=== PATIENT | male | born 1990 | race Two or more races ===

== ENCOUNTER 2021-03-22 10:42 | Emergency (ER) | payer MEDICAID, OTHER ==
[~2021-03-22] VITALS: Ht 172.7 cm; Wt 72.6 kg
[2021-03-22] MEDS ORDERED: IBUPROFEN 600 MG TAB PO ONE (11:30)
[2021-03-22 13:44] VITALS: BP 130/89
== END 2021-03-22 13:47 | disposition home or self-care (01) ==
LOC: ER 10:42
DX: B34.9 Viral infection, unspecified (principal); Z20.822 Contact with and (suspected) exposure to COVID-19
CPT/HCPCS: 36415; 87426

== ENCOUNTER 2024-12-08 06:59 | Inpatient (IN) | payer MEDICAID ==
[~2024-12-08] VITALS: Ht 177.8 cm; Wt 93.0 kg
--- NOTE | 2024-12-08 07:24 | ED.PDOC ---
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 EMS reports, patient is coming from home where he complains of abdominal pain with associated nausea and vomiting onset, x2days ago. Patient states, he believes symptoms to have arouse following, drinking iced tea out of a suspected molded glynn. Patient denies fever, chills, sweats, or diarrhea. No other symptoms or modifying factors present at this time. Time Seen by MD: 07:00 Primary Care Provider: DENIES Reviewed Notes: Nurses Notes, Personal Care Assistant Notes, Medications, Allergies Allergies: Coded Allergies: NO KNOWN ALLERGIES (Unverified , 03/22/21) Information Source: Patient, Emergency Med Personnel Mode of Arrival: EMS Timing: Days Duration: Since onset Prehospital treatment: None Quality: None Vomitus: Watery Stool: Normal Severity: Moderate Recent: None Recent Hx of: None Pain Location: Diffuse Modifying Factors: Nothing Associated sign and symptoms: Nausea, Vomiting, Abdominal Pain Past Medical History PAST MEDICAL HISTORY: Denies Family History Family History: Reviewed,noncontributory to illness Social History Smoker: Less Than 1 Pack/Day Alcohol: Denies ETOH Use Drugs: Denies Drug Use Lives In: Home Constitutional: denies: chills, diaphoresis, fatigue, fever, malaise, sweats, weakness, others EENTM: denies: blurred vision, double vision, ear bleeding, ear discharge, ear drainage, ear pain, ear ringing, eye pain, eye redness, hearing loss, mouth pain, mouth swelling, nasal discharge, nose bleeding, nose congestion, nose pain, photophobia, tearing, throat pain, throat swelling, voice changes, others Respiratory: denies: cough, hemoptysis, orthopnea, SOB at rest, shortness of breath, SOB with excertion, stridor, wheezing, others Cardiovascular: denies: chest pain, dizzy spells, diaphoresis, Dyspnea on exertion, edema, irregular heart beat, left arm pain, lightheadedness, palpitations, PND, syncope, others Gastrointestinal: reports: abdominal pain, nausea, vomiting; denies: abdomen distended, blood streaked bowels, constipated, diarrhea, dysphagia, difficulty swallowing, hematemesis, melena, poor appetite, poor fluid intake, rectal bleeding, rectal pain, others Genitourinary: denies: burning, dysuria, flank pain, frequency, hematuria, incontinence, penile discharge, penile sore, pain, testicle pain, testicle swelling, urgency, others Neurological: denies: dizziness, fainting, headache, left sided numbness, left sided weakness, numbness, paresthesia, pre-existing deficit, right sided numbness, right sided weakness, seizure, speech problems, tingling, tremors, weakness, others Musculoskeletal: denies: back pain, gout, joint pain, joint swelling, muscle pain, muscle stiffness, neck pain, others Integumetry: denies: bruises, change in color, change in hair/nails, dryness, laceration, lesions, lumps, rash, wounds, others Allergic/Immunocompromised: denies: Difficulty Healing, Frequent Infections, Hives, Itching, others Hematologic/Lymphatic: denies: anemia, blood clots, easy bleeding, easy bruising, swollen glands, others Endocrine: denies: excessive hunger, excessive sweating, excessive thirst, excessive urination, flushing, intolerance to cold, intolerance to heat, unexplained weight gain, unexplained weight loss, others Psychiatric: denies: anxiety, bipolar disorder, depression, hopeless, panic disorder, schizophrenia, sleepless, suicidal, others All Other Systems: Reviewed and Negative Physical Exam General Appearance: Moderate Distress HEENT: Normal ENT Inspection, Pharynx Normal, TMs Normal Neck: Full Range of Motion, Non-Tender, Normal, Normal Inspection Respiratory: Chest Non-Tender, Lungs Clear, No Accessory Muscle Use, No Respiratory Distress, Normal Breath Sounds Cardiovascular: No Edema, No JVD, No Murmur, No Gallop, Normal Peripheral Pulses, Regular Rate/Rhythm Breast Exam: Deferred Gastrointestinal: No Organomegaly, Non Tender, No Pulsatile Mass, Normal Bowel Sounds, Soft Genitalia: Deferred Pelvic: Deferred Rectal: Deferred Extremities: No calf tenderness, Normal capillary refill, Normal inspection, Normal range of motion, Non-tender, No pedal edema Musculoskeletal : Apperance: Normal Neurologic: Alert, No Motor Deficits, No Sensory Deficits Cerebellar Function: NOT DONE Reflexes: NOT DONE Skin: Dry, Normal Color, Warm Lymphatic: No Adenopathy Was a procedure done? Was a procedure done?: No GI differential Dx Differential Diagnosis: Constipation, Diverticular disease, Esophagitis, Gastritis/PUD, Gastroenteritis, Electrolyte Imbalance, Food Poisoning, Bacterial, Viral X-Ray, Labs, Meds, VS Vital Signs Date Time Temp Pulse Resp B/P (MAP) Pulse Ox O2 Delivery O2 Flow Rate FiO2 12/08/24 07:49 98.0 108 15 138/82 (100) 100 98.0 12/08/24 07:28 98.1 114 18 133/98 (110) 100 98.1 Lab Test 12/08/24 07:22 Range/Units White Blood Count 19.2 H 4.4-10.8 10^3/uL Red Blood Count 5.14 4.5-5.90 10^6/uL Hemoglobin 15.5 13.5-17.5 g/dL Hematocrit 44.7 41.0-53.0 % Mean Corpuscular Volume 87.1 80.0-100.0 fL Mean Corpuscular Hemoglobin 30.1 28.0-32.0 pg Mean Corpuscular Hemoglobin Concent 34.6 32.0-36.0 g/dL Red Cell Distribution Width 17.7 H 11.8-14.3 % Platelet Count 335 140-450 10^3/uL Mean Platelet Volume 7.3 6.9-10.8 fL Neutrophils (%) (Auto) 83.4 H 37.0-80.0 % Lymphocytes (%) (Auto) 9.2 L 10.0-50.0 % Monocytes (%) (Auto) 7.2 0.0-12.0 % Eosinophils (%) (Auto) 0.0 0.0-7.0 % Basophils (%) (Auto) 0.2 0.0-2.0 % Neutrophils # (Auto) 16.0 H 1.6-8.6 10 ^3/uL Lymphocytes # (Auto) 1.8 0.4-5.4 10 ^3/uL Monocytes # (Auto) 1.4 H 0-1.3 10 ^3/uL Eosinophils # (Auto) 0 0-0.8 10 ^3/uL Basophils # (Auto) 0 0-0.2 10 ^3/uL Nucleated Red Blood Cells 0.0 % Sodium Level 142 136-145 mmol/L Potassium Level 3.0 L 3.5-5.1 mmol/L Chloride Level 98 98-107 mmol/L Carbon Dioxide Level 27 20-31 mmol/L Anion Gap 17 H 5-15 Blood Urea Nitrogen 21 9-23 mg/dL Creatinine 1.60 H 0.700-1.30 mg/dL Glomerular Filtration Rate Calc 57 >90 mL/min BUN/Creatinine Ratio 13.1 10.0-20.0 Serum Glucose 128 H 74-106 mg/dL Calcium Level 12.9 H 8.7-10.4 mg/dL Current Medications Medications (Trade) Dose Ordered Sig/Jermain Route Start Time Stop Time Status Last Admin Sodium Chloride 1,000 ml @ 1,000 mls/hr Q1H ONCE IV 12/08/24 07:15 12/08/24 08:14 12/08/24 07:45 Ondansetron HCl (Zofran) 4 mg ONCE ONCE IV 12/08/24 07:15 12/08/24 07:16 DC 12/08/24 07:45 Lorazepam (Ativan Inj) 1 mg ONCE ONCE IV 12/08/24 07:30 12/08/24 07:31 DC 12/08/24 07:45 Patient alert. Came in because of nausea vomiting. Establish intravenous access. Vitals stable. Answering questions. Denies suicidal or homicidal ideation. Was given fluids. Was given Zofran. Was given Ativan. Calcium is elevated. Potassium is low. Was given potassium. WBC elevated. Blood cultures. Lactic acid. Possible sepsis. Has not been taking his psychiatric medication. Continue cardiac monitoring. Time of 1ST Reevaluation: 07:30 Reevaluation 1ST: Unchanged Patient Education/Counseling: Diagnosis, Treatment Family Education/Counseling: No Family Present Departure 1 Departure Time of Disposition: 08:14 Impression: Primary Impression: Sepsis, unspecified organism Qualified Codes: A41.9 - Sepsis, unspecified organism Disposition: 09 ADMITTED INPATIENT Admit to: Med Surg Condition: Guarded Critical Care Note Critical Care Time?: Yes (90 min-critical care time only) Critical care comment: Sepsis Stability Stability form required: No Heart Score Heart Score: Heart Score Response (Comments) Value History N/A 0 EKG N/A 0 Age N/A 0 Risk Factors N/A 0 Troponin N/A 0 Total 0 I personally scribed for NELLA ESTRELLA MD ([email or web address]) on 12/08/24 at 07:24. Electronically submitted by Cynthia Fay [email or web address]). NELLA ESTRELLA MD December 08, 2024 07:24
[2024-12-08 07:32] LABS: Basophils # (auto) 0 10 ^3/uL (0-0.2); Basophils % (auto) 0.2 % (0.0-2.0); Eosinophils # (auto) 0 10 ^3/uL (0-0.8); Hematocrit 44.7 % (41.0-53.0); Hemoglobin 15.5 g/dL (13.5-17.5); Lymphocytes # (auto) 1.8 10 ^3/uL (0.4-5.4); Lymphocytes % (auto) 9.2 % (10.0-50.0); Mean Corpuscular Hemoglobin 30.1 pg (28.0-32.0); Mean Corpuscular Hgb Conc. 34.6 g/dL (32.0-36.0); Mean Corpuscular Volume 87.1 fL (80.0-100.0); Monocytes # (auto) 1.4 10 ^3/uL (0-1.3); Monocytes % (auto) 7.2 % (0.0-12.0); Neutrophils % (auto) 83.4 % (37.0-80.0); Platelet Count (auto) 335 10^3/uL (140-450); Red Blood Cells 5.14 10^6/uL (4.5-5.90); Red Cell Distribution Width 17.7 % (11.8-14.3); White Blood Cell 19.2 10^3/uL (4.4-10.8)
[2024-12-08 07:43] LABS: Chloride 98 mmol/L (98-107); Sodium 142 mmol/L (136-145)
[2024-12-08 07:44] LABS: Anion Gap 17 (5-15); Carbon Dioxide 27 mmol/L (20-31)
[2024-12-08] MEDS: LORazepam 2MG/ML-1ML VIAL IV ONE (07:45)
[2024-12-08] MEDS: SODIUM CHLORIDE 0.9% 1,000 ML IV ONE ×3 (07:45→09:10)
[2024-12-08] MEDS: ONDANSETRON HCL 4 MG/2 ML VIAL IV ONE (07:45)
[2024-12-08 07:49] LABS: BUN/Creatinine Ratio 13.1 (10.0-20.0); Blood Urea Nitrogen 21 mg/dL (9-23)
[2024-12-08 07:52] LABS: Calcium 12.9 mg/dL (8.7-10.4); Glucose 128 mg/dL (74-106)
[2024-12-08] MEDS: cefTRIAXone 1GM/50ML D5W 50 ML IV ONE (09:09)
[2024-12-08] MEDS: metroNIDAZOLE 500MG/100ML 100 ML IV ONE (09:10)
[2024-12-08] MEDS: PROCHLORPERAZINE EDISYLATE 5 MG/ML 2ML VIAL IV ONE (09:32)
[2024-12-08 10:17] LABS: Urine Bacteria None Seen /hpf (None Seen)
[2024-12-08 10:25] LABS: Urine Blood Negative /uL (Negative); Urine Clarity Turbid (Clear); Urine Color Yellow (Yellow); Urine Hyaline Cast FEW /lpf (0 - 2); Urine Mucus FEW (None Seen); Urine Protein, UAD TRACE (Negative); Urine Specific Gravity 1.021 (1.001-1.035); Urine Squamous Epithelial Cell FEW /hpf (<5); Urine Urobilinogen Normal (Negative); Urine WBC 1 /HPF (0-3)
--- NOTE | 2024-12-08 10:26 | DVH ---
CT CT AB PEL WO CON-NO ORAL OR IV INDICATION: colitis EXAM DATE: 12/08/2024 09:52 AM COMPARISON: None RADIATION DOSE: CTDIvol: 11.86 mGy, DLP: 698.32 mGy*cm PROCEDURE: Helical CT images were obtained of the abdomen and pelvis without IV contrast Sagittal and coronal reconstructions are provided. ORAL CONTRAST: None. ADDITIONAL IMAGES / REFORMATS: None All C T scans at this medical facility are performed using dose modulation techniques as appropriate to a p erformed exam including the following: Automated exposure control was utilized; adjustment of the MA and/or KV according to patient size; and use of iterative reconstruction technique. FINDINGS: LUNG BASE: Normal. LIVER: Normal. GALLBLADDER AND BILIARY TREE: No calcified gallstones. Normal caliber wall. No intra- or extrahepatic biliary ductal dilation. PANCREAS: Normal. SPLEEN: Normal. BOWEL: Normal. Normal appendix. ADRENALS: Normal. KIDNEYS AND URETER: Punctate nonobstructive left kidney stone. BLADDER: Normal. REPRODUCTIVE ORGANS: Normal. LYMPH NODES:No lymphadenopathy. PERITONEUM: No ascites or free air. No other fluid collection. VESSELS: Scattered atherosclerotic calcifications are noted. RETROPERITONEUM: Normal. ABDOMINAL WALL: Normal. BONES: Scattered osseous degenerative changes are noted. IMPRESSION: No acute intraabdominal abnormality. Punctate nonobstructive left kidney stone.
[2024-12-08] MEDS ORDERED: NITROGLYCERIN 0.4 MG SL TAB SL PRN (14:00)
[2024-12-08] MEDS: SODIUM CHLORIDE 0.9% 1,000 ML IV SCH (14:00)
[2024-12-08] MEDS: PIPERACILLIN-TAZOB 3.375GM 100 ML IV ONE (14:37)
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
[2024-12-08 15:45] VITALS: PULSE 114; RESP 18; O2SAT 94
--- NOTE | 2024-12-08 15:51 | DVHHP2 ---
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 EMS reports, patient is coming from home where he complains of abdominal pain with associated nausea and vomiting onset, x2days ago. Patient states, he believes symptoms to have arouse following, drinking iced tea out of a suspected molded glynn. Patient denies fever, chills, sweats, or diarrhea. No other symptoms or modifying factors present at this time. He is noted to have elevated white cell count of 19k on labs. His CT of the abdomen pelvis did not show any significant acute pathology. However given his complaints with the leukocytosis is being admitted to the hospital for further evaluation and recommendations from Gastroenterology consultation. Past Medical History None significant noted Past Surgical History: None Family History: Hypertension Smoke: <1 pack per day ALCOHOL: occassional Lives: with Family Review of Systems Review of Systems No fevers chills or sweats. No headache dizziness or lightheadedness. No recent travel. Other review of systems reviewed normal. Allergies: Coded Allergies: NO KNOWN ALLERGIES (Unverified , 03/22/21) Medications Current Medications Medications Dose Ordered Sig/Jermain Route Start Time Stop Time Status Last Admin Dose Admin Nitroglycerin 0.4 mg Q5MINP PRN SL 12/08/24 14:00 Morphine Sulfate 2 mg Q30M PRN IV 12/08/24 14:00 Sodium Chloride 1,000 ml @ 125 mls/hr Q8H IV 12/08/24 14:00 Ondansetron HCl 4 mg Q6HPRN PRN IV 12/08/24 14:00 Acetaminophen/ Hydrocodone Bitart 1 tab Q6HPRN PRN PO 12/08/24 14:00 Morphine Sulfate 2 mg Q4HPRN PRN IV 12/08/24 14:00 Famotidine 20 mg Q12HR IV 12/08/24 22:00 Piperacillin Sod/ Tazobactam Sod 100 ml @ 25 mls/hr Q6H IV 12/08/24 21:00 Exam Vital Signs Vital Signs Date Time Temp Pulse Resp B/P (MAP) Pulse Ox O2 Delivery O2 Flow Rate FiO2 12/08/24 15:45 98.0 114 18 130/93 (105) 95 98.0 12/08/24 09:21 Room Air Exam For alert awake oriented x3. HEENT neck supple no JVD pupils equal round react to light. Heart regular rate and rhythm S1 plus S2 no murmurs. Lungs fair air movement. Chest tube will expansion. No rales or wheezes. Abdomen is soft , mild tenderness in the epigastric region without rebound or guarding. No organomegaly. Positive active bowel sounds. Edema no edema. Positive distal pedal pulses. Labs/Xrays Labs Test 12/08/24 10:15 12/08/24 08:39 12/08/24 07:22 Range/Units Urine Color Yellow Yellow Urine Clarity Turbid H Clear Urine pH 8.0 5.0-9.0 Urine Specific [place] 1.021 1.001-1.035 Urine Protein Trace H Negative Urine Ketones 1+ H Negative Urine Blood Negative Negative /uL Urine Nitrite Negative Negative Urine Bilirubin Negative Negative Urine Urobilinogen Normal Negative mg/dL Urine Leukocyte Esterase Negative Negative /uL Urine RBC 4 0 - 3 /hpf Urine Microscopic WBC 1 0-3 /HPF Urine Squamous Epithelial Cells Few <5 /hpf Urine Bacteria None seen None Seen /hpf Urine Hyaline Casts Few 0 - 2 /lpf Urine Mucus Few None Seen Urine Glucose Normal Normal mg/dL Lactic Acid Level 1.8 0.4-2.0 mmol/L White Blood Count 19.2 H 4.4-10.8 10^3/uL Red Blood Count 5.14 4.5-5.90 10^6/uL Hemoglobin 15.5 13.5-17.5 g/dL Hematocrit 44.7 41.0-53.0 % Mean Corpuscular Volume 87.1 80.0-100.0 fL Mean Corpuscular Hemoglobin 30.1 28.0-32.0 pg Mean Corpuscular Hemoglobin Concent 34.6 32.0-36.0 g/dL Red Cell Distribution Width 17.7 H 11.8-14.3 % Platelet Count 335 140-450 10^3/uL Mean Platelet Volume 7.3 6.9-10.8 fL Neutrophils (%) (Auto) 83.4 H 37.0-80.0 % Lymphocytes (%) (Auto) 9.2 L 10.0-50.0 % Monocytes (%) (Auto) 7.2 0.0-12.0 % Eosinophils (%) (Auto) 0.0 0.0-7.0 % Basophils (%) (Auto) 0.2 0.0-2.0 % Neutrophils # (Auto) 16.0 H 1.6-8.6 10 ^3/uL Lymphocytes # (Auto) 1.8 0.4-5.4 10 ^3/uL Monocytes # (Auto) 1.4 H 0-1.3 10 ^3/uL Eosinophils # (Auto) 0 0-0.8 10 ^3/uL Basophils # (Auto) 0 0-0.2 10 ^3/uL Nucleated Red Blood Cells 0.0 % Sodium Level 142 136-145 mmol/L Potassium Level 3.0 L 3.5-5.1 mmol/L Chloride Level 98 98-107 mmol/L Carbon Dioxide Level 27 20-31 mmol/L Anion Gap 17 H 5-15 Blood Urea Nitrogen 21 9-23 mg/dL Creatinine 1.60 H 0.700-1.30 mg/dL Glomerular Filtration Rate Calc 57 >90 mL/min BUN/Creatinine Ratio 13.1 10.0-20.0 Serum Glucose 128 H 74-106 mg/dL Calcium Level 12.9 H 8.7-10.4 mg/dL Thyroid Stimulating Hormone (TSH) 2.57 0.55-4.78 uIU/mL Free Thyroxine (T4) Calculated 1.69 0.89-1.76 ng/dL Assessment/Plan Assessment/Plan Abdominal pain Leukocytosis We will admit and have GI consultation. Clear liquid diet. I will check lipase. We will check urine drug screen and alcohol level. IV fluids. Nausea pain medications. Supportive care and treatment. Proton pump inhibitor. Empiric antibiotics for leukocytosis. Otherwise continue rest of supportive care and treatment and further clinical management per clinical course and recommendations from the network systems consultant. Plan discussed with: Other My Orders Orders - TRUE WHITE MD Procedure Category Date Status Time Drug Screen LAB 12/08/24 Logged 13:59 Admit ADMIT 12/08/24 Transmitted 13:59 Clear Liq Diet DIET 12/08/24 Transmitted Dinner * Gi D[facility] Organic Extractions Technician CONS 12/08/24 Transmitted 13:59 Comprehensive LAB 12/09/24 Verified Metabolic Panel 04:00 Complete Blood Count LAB 12/09/24 Verified 04:00 Lipase LAB 12/09/24 Verified 04:00 Nitroglycerin PHA 12/08/24 In Process Sublingual (Ntrostat 14:00 Morphine Sulfate PHA 12/08/24 In Process Injection 14:00 Stat Ekg For Chest JOSE 12/08/24 In Process Pain 13:59 Notify Of Changes JOSE 12/08/24 In Process From Base 13:59 Wire Preparation Worker For JOSE 12/08/24 In Process 24 Hours 13:59 Emergency Dysrhythmia JOSE 12/08/24 In Process Protocol 13:59 Rhythm Strips Once JOSE 12/08/24 In Process Every Shift 13:59 Oxygen By Nasal RT 12/08/24 Transmitted Cannula 13:59 Sodium Chloride 0.9% PHA 12/08/24 In Process 14:00 Ondansetron Hcl PHA 12/08/24 In Process (Zofran) 14:00 Hydrocodone-Acet PHA 12/08/24 In Process 5/325mg Tab ([place] 14:00 Morphine Sulfate PHA 12/08/24 In Process Injection 14:00 Famotidine Injection PHA 12/08/24 In Process (Pepcid Injection) 22:00 Piperacillin-Tazob PHA 12/08/24 In Process 3.375gm (Zosyn 3.375g 21:00 Problem List: (1) Viral syndrome TRUE WHITE MD December 08, 2024 15:51
[2024-12-08] MEDS: ONDANSETRON HCL 4 MG/2 ML VIAL IV PRN (15:52)
[2024-12-08] MEDS: MORPHINE SULFATE INJ 2 MG/ml SYRG IV PRN ×2 (15:53→20:51)
[2024-12-08] MEDS: POTASSIUM EFFERVESENT TAB 25 MEQ PO ONE (16:54)
[2024-12-08] MEDS: POTASSIUM CHLORIDE 20 MEQ, LIDOCAINE 1% (LOCAL ANESTH.) 2 ML in SODIUM CHL 0.9% 100 ML IV ONE (17:50)
[2024-12-08] MEDS: HYDROcodone-ACET 5/325MG TAB PO PRN (18:34)
--- NOTE | 2024-12-08 19:40 | DVH ---
INDICATION: abel TECHNIQUE: Multiple real-time sonographic images of the kidneys and bladder were obtained. COMPARISON: None FINDINGS: The right kidney measures 9 cm in length, which is normal in size. There is normal echogenicity of t he right kidney. No hydronephrosis. The left kidney measures 10.7 cm in length, which is normal in size. There is normal echogenicity of the left kidney. No hydronephrosis. Urinary bladder is unremarkable. Urinary bladder volume of 97 cc. IMPRESSION: Normal sonographic appearance of the kidneys and urinary bladder.
[2024-12-08 20:22] VITALS: PULSE 100; RESP 18; O2SAT 96
[2024-12-08 20:36] LABS: Cannabinoid Screen, Urine Neg (NEGATIVE); Opiate Scree,Urine Neg (NEGATIVE)
[2024-12-08] MEDS: FAMOTIDINE (10MG/ML) 2ML VL IV SCH (20:51)
[2024-12-08] MEDS: PIPERACILLIN-TAZOB 3.375GM 100 ML IV SCH (20:51)
[2024-12-08 21:23] LABS: Amphetamine Screen, Urine Neg (NEGATIVE); Barbiturate Scree,Urine Neg (NEGATIVE); Benzodiazephine Screen, Urine Neg (NEGATIVE); Cocaine Screen, Urine Neg (NEGATIVE); Phencyclidine Screen, Urine Neg (NEGATIVE)
[2024-12-09] MEDS: KETOROLAC TROMETH 30 MG/ML 1ML VIAL IV ONE (02:03)
[2024-12-09 06:37] LABS: Alanine Aminotransferase 18 U/L (7-40); Albumin 4.7 g/dL (3.2-4.8); Anion Gap 11 (5-15); Aspartate Aminotransferase 17 U/L (13-40); Basophils # (auto) 0.1 10 ^3/uL (0-0.2); Basophils % (auto) 0.4 % (0.0-2.0); Blood Urea Nitrogen 19 mg/dL (9-23); Calcium 9.1 mg/dL (8.7-10.4); Carbon Dioxide 29 mmol/L (20-31); Chloride 103 mmol/L (98-107); Eosinophils # (auto) 0 10 ^3/uL (0-0.8); Eosinophils % (auto) 0.1 % (0.0-7.0); Glucose 92 mg/dL (74-106); Hematocrit 37.5 % (41.0-53.0); Hemoglobin 12.6 g/dL (13.5-17.5); Lipase 37 U/L (12-53); Lymphocytes # (auto) 1.8 10 ^3/uL (0.4-5.4); Lymphocytes % (auto) 12.6 % (10.0-50.0); Mean Corpuscular Hemoglobin 29.9 pg (28.0-32.0); Mean Corpuscular Hgb Conc. 33.7 g/dL (32.0-36.0); Mean Corpuscular Volume 88.9 fL (80.0-100.0); Monocytes # (auto) 1.1 10 ^3/uL (0-1.3); Monocytes % (auto) 8.1 % (0.0-12.0); Neutrophils # (auto) 11.1 10 ^3/uL (1.6-8.6); Neutrophils % (auto) 78.8 % (37.0-80.0); Nucleated Red Blood Cells % 0.1 %; Platelet Count (auto) 290 10^3/uL (140-450); Red Blood Cells 4.22 10^6/uL (4.5-5.90); Red Cell Distribution Width 17.2 % (11.8-14.3); Sodium 143 mmol/L (136-145); Total Protein 6.8 g/dL (5.7-8.2); White Blood Cell 14.1 10^3/uL (4.4-10.8)
[2024-12-09 06:48] LABS: Alkaline Phosphatase 38 U/L (46-116); Bilirubin, Total 1.8 mg/dL (0.2-1.0); Potassium 3.4 mmol/L (3.5-5.1)
[2024-12-09 07:19] VITALS: PULSE 101; RESP 19; O2SAT 97
[2024-12-09] MEDS: POTASSIUM CHL 20 Meq TABLET PO ONE (07:38)
[2024-12-09 08:57] VITALS: BP 129/89; PULSE 90; RESP 18; TEMP 98.9; O2SAT 96
--- NOTE | 2024-12-09 10:31 | DVH ---
INDICATION: elevated bilirubin TECHNIQUE: Multiple real-time sonographic images were obtained of the right upper quadrant. COMPARISON: None FINDINGS: The liver demonstrates homogenous echotexture without focal mass lesions. The liver measure s 16 cm. There is no intrahepatic or extrahepatic ductal dilatation. The common duct measures 4 mm. The gallbladder is without evidence of stone or sludge. The gallbladder wall measures 3 mm and is wi thin normal limits. The right kidney measures 9.7 cm. The right kidney is normal in contour, size, and shape. The echoge nicity is normal. There is no hydronephrosis. The pancreas is not well visualized due to overlying bowel gas. IMPRESSION: No sonographic evidence of gallstones or acute cholecystitis.
[2024-12-09] MEDS ORDERED: MORPHINE SULFATE 4 MG/ML SYR/VIAL IV PRN (11:30)
[2024-12-09] MEDS: MORPHINE SULFATE 4 MG/ML SYR/VIAL IV PRN (12:00)
[2024-12-09] MEDS ORDERED: BUSP10TA31 PO (13:20)
[2024-12-09] MEDS ORDERED: TIZA-142 PO (13:20)
[2024-12-09] MEDS ORDERED: MIRT1TAB39 PO (13:20)
[2024-12-09] MEDS ORDERED: QUET400T13 PO (13:20)
[2024-12-09] MEDS ORDERED: HYDR1TAB97 PO (13:20)
--- NOTE | 2024-12-09 14:11 | DVHPN2 ---
Progress Note - Dictate Date Seen: December 09, 2024 Medical Necessity Reason Pt with a Central, PICC or Fol: No Subjective Still complains of epigastric/abdominal pain. And requesting IV Dilaudid. So far all his imaging studies/workup is unremarkable. Evaluated by GI and scheduled for EGD today. vital signs Vital Sign Date Time Temp Pulse Resp B/P (MAP) Pulse Ox O2 Delivery O2 Flow Rate FiO2 12/09/24 12:00 89 15 134/80 12/09/24 08:57 98.9 96 98.9 12/09/24 07:19 Room Air* 0 21 Total Intake and Output 12/08/24 12/08/24 12/09/24 15:00 23:00 07:00 Intake Total 2150 ml 350 ml 1056.98 ml Balance 2150 ml 350 ml 1056.98 ml medications Current Medications Medications Dose Ordered Sig/Jermain Route Start Time Stop Time Status Last Admin Dose Admin Nitroglycerin 0.4 mg Q5MINP PRN SL 12/08/24 14:00 Ondansetron HCl 4 mg Q6HPRN PRN IV 12/08/24 14:00 12/09/24 10:25 4 MG Acetaminophen/ Hydrocodone Bitart 1 tab Q6HPRN PRN PO 12/08/24 14:00 12/09/24 07:38 1 TAB Piperacillin Sod/ Tazobactam Sod 100 ml @ 25 mls/hr Q6H IV 12/08/24 21:00 12/09/24 07:42 25 MLS/HR Prochlorperazine Edisylate 5 mg Q4HPRN PRN IV 12/08/24 20:00 Morphine Sulfate 2 mg Q4HPRN PRN IV 12/09/24 11:30 12/09/24 12:00 2 MG Morphine Sulfate 2 mg Q30M PRN IV 12/09/24 11:30 Sodium Chloride 1,000 ml @ 75 mls/hr [id number] IV 12/09/24 13:45 UNV Pantoprazole Sodium 40 mg BID IV 12/09/24 22:00 UNV Nystatin 5 ml QID MT 12/09/24 18:00 UNV objective Comfortable. laboratory and microbiology Laboratory Tests 12/09/24 05:25 Test 12/09/24 05:25 Range/Units Serum Glucose 92 74-106 mg/dL Assessment/Plan Acute abdominal pain ruled out gastritis/GERD Continue present management including IV pain meds as he is on. Proceed with the EGD. I will add proton pump inhibitor and nystatin orally and DC IV Pepcid. Otherwise further clinical management per clinical course and recommendations from the GI. Discussed with the nurse regarding care plan. Plan discussed with: Other TRUE WHITE MD December 09, 2024 14:10
[2024-12-09] MEDS ORDERED: LIDOCAINE 2% (LOCAL ANESTH.) PF 5ml SDV ONE (14:32)
[2024-12-09] MEDS ORDERED: PROPOFOL 10 MG/ML 20 ML IV ONE ×2 (14:32→16:07)
[2024-12-09] MEDS ORDERED: ONDANSETRON HCL 4 MG/2 ML VIAL ONE (15:56)
[2024-12-09 16:12] VITALS: PULSE 82; RESP 21; O2SAT 100
--- NOTE | 2024-12-09 16:16 | DVHOP2 ---
Operative Report DATE OF OPERATION: 12/09/24 PROCEDURE: Upper Endoscopy with biopsy. PREOPERATIVE INDICATION: The patient is a 34 -year-old male undergoing endoscopy for nausea vomiting atypical chest pain POSTOPERATIVE DIAGNOSES: 1. 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 Mild gastropathy of the proximal stomach possibly related to nausea vomiting otherwise normal examination up to the 2nd and 3rd part of the duodenum PROCEDURE PERFORMED BY: Jada Paul GI NURSE: Elizabeth SCOPE: Olympus videoendoscope. ASA CLASS: 2. PREOPERATIVE MEDICATIONS: Mac sedation Merrick Louie PROCEDURE IN DETAIL: After obtaining an informed consent, the patient was placed on left lateral decubitus position. The patient was then sedated with the above medications. A bite block was placed between his teeth. The endoscope was then passed through the oropharynx, into the esophagus, and through the stomach and pylorus up to the second and third part of the duodenum. The endoscope was then withdrawn. 2nd and 3rd part of the duodenum of the duodenal bulb were normal. There was good bile drainage The pre-pyloric area antrum and body showed minimal gastritis. On retroflexion there was moderate gastropathy in the cardia and fundus Duodenal biopsies, gastric antral biopsies and proximal stomach biopsies were obtained. The endoscope was then withdrawn into distal esophagus Patient had a 4 cm sliding-type hiatal hernia with the acute erosive esophagitis esophageal ulcers at the GE junction and extending into the distal 10 cm of the esophagus with a hyperemic erythema Esophageal biopsies were obtained. The remaining proximal esophagus and oropharynx were unremarkable. The patient tolerated the procedure well without difficulty. COMPLICATIONS : None SPECIMENS: Duodenal biopsies Gastric antral biopsies Proximal stomach biopsies Esophageal biopsies DISPOSITION: Transfer back to the floor Stable PLAN: 1. Await for biopsy result 2. Will place pt on Protonix 40 mg bid IV 3. Carafate suspension 1 g p.o. 4 times a day 4 Full liquid diet advance as tolerated 5. Outpatient follow-up with me in 4-6 weeks to review results and discuss further management JADA PAUL MD December 09, 2024 16:16
[2024-12-09 16:55] VITALS: BP 124/85; PULSE 78; RESP 19; TEMP 98.8; O2SAT 96
[2024-12-09] MEDS: SODIUM CHLORIDE 0.9% 1,000 ML IV SCH (17:00)
[2024-12-09] MEDS: NYSTATIN (MOUTH-THROAT) 500,000 UNITS/5 ML SUSP MT SCH (18:06)
[2024-12-09] MEDS: SUCRALFATE 1 GM/10 ML ORAL SUSP PO SCH (18:06)
[2024-12-09] MEDS: PROCHLORPERAZINE EDISYLATE 5 MG/ML 2ML VIAL IV PRN (18:07)
[2024-12-09 20:00] VITALS: PULSE 82; RESP 16; O2SAT 95
[2024-12-09 21:00] VITALS: BP 125/90; PULSE 78; RESP 16; TEMP 98.7; O2SAT 95
[2024-12-09] MEDS: PANTOPRAZOLE 40 MG/10 ML VIAL INJ IV SCH (21:59)
[2024-12-10] VITALS (10 sets, daily range): BP systolic 100–144; BP diastolic 58–98; PULSE 60–74; RESP 16–18; TEMP 98.1–98.8; O2SAT 91–98
[2024-12-10 10:53] LABS: Hepatitis B Core Total AB Negative (Negative)
[2024-12-10 12:04] LABS: Hepatitis A Total Antibody Positive (Negative)
[2024-12-10 12:05] LABS: Hepatitis A Ab IgM Negative; Hepatitis B Core IgM Negative (Negative)
[2024-12-10 12:06] LABS: Hepatitis B Surface Antibody Positive (Negative); Hepatitis B Surface Antigen Negative (Negative); Hepatitis C Antibody Negative (Negative)
--- NOTE | 2024-12-10 12:49 | DVHPN2 ---
Progress Note - Dictate Date Seen: December 10, 2024 Medical Necessity Reason Pt with a Central, PICC or Fol: No Subjective No new complaints No nausea vomiting Patient was tolerating full liquid diet vital signs Vital Sign Date Time Temp Pulse Resp B/P (MAP) Pulse Ox O2 Delivery O2 Flow Rate FiO2 12/10/24 12:13 69 16 131/94 12/10/24 12:08 98.2 95 98.2 12/10/24 08:14 Room Air* 0 21 Total Intake and Output 12/09/24 12/09/24 12/10/24 15:00 23:00 07:00 Intake Total 100 ml 900 ml Balance 100 ml 900 ml medications Current Medications Medications Dose Ordered Sig/Jermain Route Start Time Stop Time Status Last Admin Dose Admin Nitroglycerin 0.4 mg Q5MINP PRN SL 12/08/24 14:00 Ondansetron HCl 4 mg Q6HPRN PRN IV 12/08/24 14:00 12/09/24 10:25 4 MG Acetaminophen/ Hydrocodone Bitart 1 tab Q6HPRN PRN PO 12/08/24 14:00 12/10/24 09:35 1 TAB Piperacillin Sod/ Tazobactam Sod 100 ml @ 25 mls/hr Q6H IV 12/08/24 21:00 12/10/24 09:34 25 MLS/HR Prochlorperazine Edisylate 5 mg Q4HPRN PRN IV 12/08/24 20:00 12/09/24 18:07 5 MG Morphine Sulfate 2 mg Q4HPRN PRN IV 12/09/24 11:30 12/10/24 12:13 2 MG Morphine Sulfate 2 mg Q30M PRN IV 12/09/24 11:30 Sodium Chloride 1,000 ml @ 75 mls/hr [id number] IV 12/09/24 13:45 12/09/24 17:00 75 MLS/HR Pantoprazole Sodium 40 mg BID IV 12/09/24 22:00 12/10/24 09:34 40 MG Nystatin 5 ml QID MT 12/09/24 18:00 12/10/24 12:10 5 ML Sucralfate 1 gm QID@0600,1130,1700,2200 PO 12/09/24 17:00 12/10/24 12:10 1 GM objective General: NAD, AAOX3 Chest: lung ordoñez clear to auscultation Heart: RRR, no murmur Abdomen: non-distended, mild epigastric tenderness to palpation, +BS laboratory and microbiology Laboratory Tests 12/09/24 05:25 Test 12/09/24 05:25 Range/Units Serum Glucose 92 74-106 mg/dL Problems(with codes): (1) Hiatal hernia with gastroesophageal reflux disease and esophagitis (2) Nausea & vomiting (3) Viral syndrome (4) Sepsis, unspecified organism Prognosis Plan Advance diet as tolerated Protonix 40 mg q.12 hours Carafate 1 g p.o. 4 times a day DC aspirin NSAIDs smoking alcohol marijuana use and amphetamine use Outpatient follow up with GI Services for ongoing GI management for GERD Plan discussed with: Patient JADA MICHAEL MD December 10, 2024 12:49
--- NOTE | 2024-12-10 15:18 | DVHPN2 ---
Progress Note - Dictate Date Seen: December 10, 2024 Medical Necessity Reason Pt with a Central, PICC or Fol: No Subjective Tolerating full liquid diet. He EGD report is reviewed and discussed with the patient regarding severe esophagitis. Patient is still having some odynophagia. vital signs Vital Sign Date Time Temp Pulse Resp B/P (MAP) Pulse Ox O2 Delivery O2 Flow Rate FiO2 12/10/24 12:13 69 16 131/94 12/10/24 12:08 98.2 95 98.2 12/10/24 08:14 Room Air* 0 21 Total Intake and Output 12/09/24 12/09/24 12/10/24 15:00 23:00 07:00 Intake Total 100 ml 900 ml Balance 100 ml 900 ml medications Current Medications Medications Dose Ordered Sig/Jermain Route Start Time Stop Time Status Last Admin Dose Admin Nitroglycerin 0.4 mg Q5MINP PRN SL 12/08/24 14:00 Ondansetron HCl 4 mg Q6HPRN PRN IV 12/08/24 14:00 12/09/24 10:25 4 MG Acetaminophen/ Hydrocodone Bitart 1 tab Q6HPRN PRN PO 12/08/24 14:00 12/10/24 09:35 1 TAB Prochlorperazine Edisylate 5 mg Q4HPRN PRN IV 12/08/24 20:00 12/09/24 18:07 5 MG Morphine Sulfate 2 mg Q4HPRN PRN IV 12/09/24 11:30 12/10/24 12:13 2 MG Morphine Sulfate 2 mg Q30M PRN IV 12/09/24 11:30 Sodium Chloride 1,000 ml @ 75 mls/hr [id number] IV 12/09/24 13:45 12/09/24 17:00 75 MLS/HR Pantoprazole Sodium 40 mg BID IV 12/09/24 22:00 12/10/24 09:34 40 MG Nystatin 5 ml QID MT 12/09/24 18:00 12/10/24 12:10 5 ML Sucralfate 1 gm QID@0600,1130,1700,2200 PO 12/09/24 17:00 12/10/24 12:10 1 GM Lidocaine HCl 5 ml TID PO 12/10/24 22:00 UNV objective Alert awake oriented x3. HEENT neck supple no JVD. Heart regular rate and rhythm S1-S2. Lungs fair air movement without rales wheezes. Abdomen soft nontender positive bowel sounds. Extremities no edema positive pulses. laboratory and microbiology Laboratory Tests 12/09/24 05:25 Test 12/09/24 05:25 Range/Units Serum Glucose 92 74-106 mg/dL Assessment/Plan Acute abdominal pain status post EGD showing a severe reflux esophagitis Continue proton pump inhibitor and Carafate. Given his odynophagia I will add 24 hours of viscous lidocaine to help with the pain. Advance diet as he tolerates. If he remains stable consider discharge home tomorrow. Discussed with the patient at length regarding his care plan and EGD findings Plan discussed with: Patient, Other TRUE WHITE MD December 10, 2024 15:18
[2024-12-10] MEDS: LIDOCAINE VISCOUS 2% 15ML UD PO SCH (21:49)
[2024-12-11 01:00] VITALS: BP 126/82; PULSE 81; RESP 18; TEMP 98.3; O2SAT 94
[2024-12-11 05:00] VITALS: BP 119/84; PULSE 77; RESP 18; TEMP 98.1; O2SAT 99
[2024-12-11 08:00] VITALS: PULSE 66; PULSE 70; RESP 18; O2SAT 95
[2024-12-11] MEDS ORDERED: NYS5LQ MT (08:09)
[2024-12-11] MEDS ORDERED: PANT40T PO (08:09)
[2024-12-11] MEDS ORDERED: SUCR1SUS5 PO (08:09)
[2024-12-11 08:37] VITALS: BP 127/87; PULSE 66; RESP 20; TEMP 98.1; O2SAT 95
[2024-12-11 09:09] VITALS: BP 127/87; PULSE 66; RESP 21; TEMP 98.1; O2SAT 95
[2024-12-11] MEDS: busPIRone HCL 10 MG TAB PO SCH (10:23)
[2024-12-11 11:30] VITALS: BP 125/87; PULSE 76; RESP 18
--- NOTE | 2024-12-11 12:37 | DVHDS2 ---
Discharge Summary Date of Admission December 08, 2024 at 13:59 Date of Discharge: December 11, 2024 Labs/Diagnostic Data: Laboratory Results Test 12/10/24 06:15 12/09/24 09:26 12/09/24 05:25 12/08/24 16:45 Stool for White Cells None seen Hepatitis A IgM Antibody Negative Hepatitis A Antibody Total Positive (Negative) Hepatitis B Surface Antigen Negative (Negative) Hepatitis B Surface Antibody Positive (Negative) Hepatitis B Core Total Antibody Negative (Negative) Hepatitis B Core IgM Antibody Negative (Negative) Hepatitis C Antibody Negative (Negative) White Blood Count 14.1 10^3/uL (4.4-10.8) Red Blood Count 4.22 10^6/uL (4.5-5.90) Hemoglobin 12.6 g/dL (13.5-17.5) Hematocrit 37.5 % (41.0-53.0) Mean Corpuscular Volume 88.9 fL (80.0-100.0) Mean Corpuscular Hemoglobin 29.9 pg (28.0-32.0) Mean Corpuscular Hemoglobin Concent 33.7 g/dL (32.0-36.0) Red Cell Distribution Width 17.2 % (11.8-14.3) Platelet Count 290 10^3/uL (140-450) Mean Platelet Volume 7.5 fL (6.9-10.8) Neutrophils (%) (Auto) 78.8 % (37.0-80.0) Lymphocytes (%) (Auto) 12.6 % (10.0-50.0) Monocytes (%) (Auto) 8.1 % (0.0-12.0) Eosinophils (%) (Auto) 0.1 % (0.0-7.0) Basophils (%) (Auto) 0.4 % (0.0-2.0) Neutrophils # (Auto) 11.1 10 ^3/uL (1.6-8.6) Lymphocytes # (Auto) 1.8 10 ^3/uL (0.4-5.4) Monocytes # (Auto) 1.1 10 ^3/uL (0-1.3) Eosinophils # (Auto) 0 10 ^3/uL (0-0.8) Basophils # (Auto) 0.1 10 ^3/uL (0-0.2) Nucleated Red Blood Cells 0.1 % Sodium Level 143 mmol/L (136-145) Potassium Level 3.4 mmol/L (3.5-5.1) Chloride Level 103 mmol/L (98-107) Carbon Dioxide Level 29 mmol/L (20-31) Anion Gap 11 (5-15) Blood Urea Nitrogen 19 mg/dL (9-23) Creatinine 1.36 mg/dL (0.700-1.30) Glomerular Filtration Rate Calc 70 mL/min (>90) BUN/Creatinine Ratio 14.0 (10.0-20.0) Serum Glucose 92 mg/dL (74-106) Calcium Level 9.1 mg/dL (8.7-10.4) Magnesium Level 2.0 mg/dL (1.6-2.6) Total Bilirubin 1.8 mg/dL (0.2-1.0) Aspartate Amino Transferase (AST) 17 U/L (13-40) Alanine Aminotransferase (ALT) 18 U/L (7-40) Alkaline Phosphatase 38 U/L (46-116) Total Protein 6.8 g/dL (5.7-8.2) Albumin 4.7 g/dL (3.2-4.8) Lipase 37 U/L (12-53) Plasma/Serum Blood Alcohol < 3.0 mg/dL (<10) Test 12/08/24 10:15 12/08/24 08:39 12/08/24 07:22 Urine Color Yellow (Yellow) Urine Clarity Turbid (Clear) Urine pH 8.0 (5.0-9.0) Urine Specific Moffett 1.021 (1.001-1.035) Urine Protein Trace (Negative) Urine Ketones 1+ (Negative) Urine Blood Negative /uL (Negative) Urine Nitrite Negative (Negative) Urine Bilirubin Negative (Negative) Urine Urobilinogen Normal mg/dL (Negative) Urine Leukocyte Esterase Negative /uL (Negative) Urine RBC 4 /hpf (0 - 3) Urine Microscopic WBC 1 /HPF (0-3) Urine Squamous Epithelial Cells Few /hpf (<5) Urine Bacteria None seen /hpf (None Seen) Urine Hyaline Casts Few /lpf (0 - 2) Urine Mucus Few (None Seen) Urine Glucose Normal mg/dL (Normal) Urine Opiates Screen Neg (NEGATIVE) Urine Fentanyl Screen Neg (NEGATIVE) Urine Barbiturates Screen Neg (NEGATIVE) Urine Phencyclidine Screen Neg (NEGATIVE) Urine Amphetamines Screen Neg (NEGATIVE) Urine Benzodiazepines Screen Neg (NEGATIVE) Urine Cocaine Screen Neg (NEGATIVE) Urine Cannabinoids Screen Neg (NEGATIVE) Lactic Acid Level 1.8 mmol/L (0.4-2.0) Thyroid Stimulating Hormone (TSH) 2.57 uIU/mL (0.55-4.78) Free Thyroxine (T4) Calculated 1.69 ng/dL (0.89-1.76) Other Laboratory Tests 12/09/24 05:25 Brief Hx & Hospital Course: 34 y/o M, EPI, presents to the ED for CC of abdominal pain. EMS reports, patient is coming from home where he complains of abdominal pain with associated nausea and vomiting onset, x2days ago. Patient states, he believes symptoms to have arouse following, drinking iced tea out of a suspected molded glynn. Patient denies fever, chills, sweats, or diarrhea. No other symptoms or modifying factors present at this time. He is noted to have elevated white cell count of 19k on labs. His CT of the abdomen pelvis did not show any significant acute pathology. However given his complaints with the leukocytosis is being admitted to the hospital for further evaluation and recommendations from Gastroenterology consultation. He is admitted and evaluated by enterprise applications manager and underwent EGD. Patient noted to have significant reflux esophagitis felt causing his abdominal pain symptoms. Patient received supportive care and treatment with IV pain medications and nausea medicines. Patient is started on proton pump inhibitor and Carafate for GI recommendations. Patient also received few dose of lidocaine for his odynophagia. Otherwise overall patient is clinically feeling better. He is tolerating full liquid diet and soft diet. Therefore it is felt he could safely discharged home with continued outpatient treatment with these medications and close follow up with the enterprise applications manager for EGD biopsy results. I have talked with the patient regarding his hospital diagnosis, EGD findings, treatment he received, discharge medications, discharge instructions and follow-up plan of care. He has verbalized understanding of these and agree with the care plan as outlined. Consults/Reason for consult ORDER NUMBER(s): [id number], ACCESSION NUMBER(s): [id number] INDICATION: elevated bilirubin TECHNIQUE: Multiple real-time sonographic images were obtained of the right upper quadrant. COMPARISON: None FINDINGS: The liver demonstrates homogenous echotexture without focal mass lesions. The liver measures 16 cm. There is no intrahepatic or extrahepatic ductal dilatation. The common duct measures 4 mm. The gallbladder is without evidence of stone or sludge. The gallbladder wall measures 3 mm and is within normal limits. The right kidney measures 9.7 cm. The right kidney is normal in contour, size, and shape. The echogenicity is normal. There is no hydronephrosis. The pancreas is not well visualized due to overlying bowel gas. IMPRESSION: No sonographic evidence of gallstones or acute cholecystitis. Operations or Procedures Operative Report DATE OF OPERATION: 12/09/24 PROCEDURE: Upper Endoscopy with biopsy. PREOPERATIVE INDICATION: The patient is a 34 -year-old male undergoing endoscopy for nausea vomiting atypical chest pain POSTOPERATIVE DIAGNOSES: 1. 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 Mild gastropathy of the proximal stomach possibly related to nausea vomiting otherwise normal examination up to the 2nd and 3rd part of the duodenum PROCEDURE PERFORMED BY: Jada Michael GI NURSE: Elizabeth SCOPE: Olympus videoendoscope. ASA CLASS: 2. PREOPERATIVE MEDICATIONS: Mac sedation Merrick Louie PROCEDURE IN DETAIL: After obtaining an informed consent, the patient was placed on left lateral decubitus position. The patient was then sedated with the above medications. A bite block was placed between his teeth. The endoscope was then passed through the oropharynx, into the esophagus, and through the stomach and pylorus up to the second and third part of the duodenum. The endoscope was then withdrawn. 2nd and 3rd part of the duodenum of the duodenal bulb were normal. There was good bile drainage The pre-pyloric area antrum and body showed minimal gastritis. On retroflexion there was moderate gastropathy in the cardia and fundus Duodenal biopsies, gastric antral biopsies and proximal stomach biopsies were obtained. The endoscope was then withdrawn into distal esophagus Patient had a 4 cm sliding-type hiatal hernia with the acute erosive esophagitis esophageal ulcers at the GE junction and extending into the distal 10 cm of the esophagus with a hyperemic erythema Esophageal biopsies were obtained. The remaining proximal esophagus and oropharynx were unremarkable. The patient tolerated the procedure well without difficulty. COMPLICATIONS : None SPECIMENS: Duodenal biopsies Gastric antral biopsies Proximal stomach biopsies Esophageal biopsies DISPOSITION: Transfer back to the floor Stable PLAN: 1. Await for biopsy result 2. Will place pt on Protonix 40 mg bid IV 3. Carafate suspension 1 g p.o. 4 times a day 4 Full liquid diet advance as tolerated 5. Outpatient follow-up with me in 4-6 weeks to review results and discuss further management JADA MICHAEL MD December 09, 2024 16:16 Condition at Discharge: Stable Final Diagnosis/Problems List reflux esophagitis, gerd s/p egd, abdominal pain due to esophagitis Discharge Disposition: Home Discharge Instruct/Medications Diet: Regular, See Comment Diet comment: soft diet/full liquids diet for next 3-4 days then regular diet as tolerated Activity: No Restrictions, As Tolerated Follow Up/Referral: GI doctor Jada Michael 2 weeks for EGD biopsy results and follow up abdominal pain Medications: as prescribed and home medications New Medications: Nystatin (Mouth-Throat) (Mycostatin (Mouth-Throat)) 500,000 Units/5 Ml Ss 5 ML MT QID for 10 Days, #200 ML Pantoprazole Sodium Sesquihydr (Pantoprazole Sodium) 40 Mg Tab 40 MG PO BIDAC, #90 TAB Sucralfate (Carafate) 1 Gm/10 Ml Altagracia 10 ML PO QID, #1200 ML Continued Medications: Buspirone HCl (Buspirone HCl) 10 Mg Tab 1 TAB PO BID Hydrocodone-Acetaminophen (Hydrocodone/Acetaminophen 5-325 mg) 1 Tab Tab 1 TAB PO TID Mirtazapine (Mirtazapine Oral Disintegrating Tablet) 30 Mg Tab 1 TAB PO Quetiapine Fumerate (Quetiapine Fumarate) 400 Mg Tab 1 TAB PO BID Tizanidine Hydrochloride (Tizanidine Hcl) 4 Mg Tab 1 TAB PO BID Discharge Statement: "Patient was advised to return to the ER or call 911 if any headaches, dizziness, shortness of breath, chest pain, abdominal pain, bleeding, fevers, or worsening of medical condition. Patient was counseled about treatment plan, medications, possible side effects, patientverbalized understanding. All questions were answered to the best of my ability. This discharge took greater then 30 minutes in planning, reviewing documentation, counseling the patient, and discussing with other team members." ASSESSMENT ASSESSMENT Assessment reflux esophagitis, gerd s/p egd, abdominal pain due to esophagitis TRUE WHITE MD December 11, 2024 12:37
== END 2024-12-11 12:20 | disposition home or self-care (01) | DRG 720 ==
LOC: EDBD 06:59 → ER 07:01 → OVERFLOW 13:59 → TELE-WESTW 12-09 17:19
PROVIDERS: ADMIT Hospitalist; ATTEND Hospitalist
PROC: 0DB78ZX Excision of Stomach, Pylorus, Via Natural or Artificial Opening Endoscopic, Diagnostic (ICD-10-PCS; 2024-12-09)
PROC: 0DB68ZX Excision of Stomach, Via Natural or Artificial Opening Endoscopic, Diagnostic (ICD-10-PCS; 2024-12-09)
PROC: 0DB58ZX Excision of Esophagus, Via Natural or Artificial Opening Endoscopic, Diagnostic (ICD-10-PCS; 2024-12-09)
PROC: 0DB98ZX Excision of Duodenum, Via Natural or Artificial Opening Endoscopic, Diagnostic (ICD-10-PCS; principal; 2024-12-09 16:00)
DX: A41.9 Sepsis, unspecified organism (principal); K22.11 Ulcer of esophagus with bleeding; K25.4 Chronic or unspecified gastric ulcer with hemorrhage; F17.210 Nicotine dependence, cigarettes, uncomplicated; N20.0 Calculus of kidney; K44.9 Diaphragmatic hernia without obstruction or gangrene; K31.9 Disease of stomach and duodenum, unspecified; Z82.49 Family history of ischemic heart disease and other diseases of the circulatory system
CPT/HCPCS: 36415; 74176; 76705; 76775; 80048; 80053; 80074; 80307; 80320; 81001; 83605; 83690; 83735; 84439; 84443; 85025; 85048; 86704; 86706; 86708; 86803; 87040; 87045; 87340; 96361; 96365; 96375; 99291; 99292; G0378; J1885; J2003; J2405; J2470; J2543; J2704; J3490

== ENCOUNTER 2025-01-08 05:11 | Inpatient (IN) | payer MEDICAID ==
[~2025-01-08] VITALS: Ht 172.7 cm; Wt 95.0 kg
[~2025-01-08 05:11] MED LIST: BUSP10TA31 PO; HYDR1TAB97 PO; MIRT1TAB39 PO; NYS5LQ MT; PANT40T PO; QUET400T13 PO; SUCR1SUS5 PO; TIZA-142 PO
--- NOTE | 2025-01-08 06:27 | ED.PDOC ---
GI ASSESSMENT HPI Comments 34-year-old male with no reported PMHx presents with a chief complaint of abdominal pain, nausea, and vomiting. Patient states that his pain is localized diffusely, nonradiating, describes as aching, and rates his pain a 8/10. Patient states that he has been vomiting since yesterday morning. Patient denies any blood in his emesis. Patient denies marijuana use. Chief Complaint: Nausea/Vomiting Time Seen by MD: 06:12 Primary Care Provider: DENIES Reviewed Notes: Medications, Allergies Allergies: Coded Allergies: NO KNOWN ALLERGIES (Unverified , 03/22/21) Home Meds Active Scripts Nystatin (Mouth-Throat) (Mycostatin (Mouth-Throat)) 500,000 Units/5 Ml Ss, 5 ML MT QID for 10 Days, #200 ML Prov:TRUE WHITE MD 12/11/24 Sucralfate (Carafate) 1 Gm/10 Ml Altagracia, 10 ML PO QID, #1200 ML Prov:TRUE WHITE MD 12/11/24 Pantoprazole Sodium Sesquihydr (Pantoprazole Sodium) 40 Mg Tab, 40 MG PO BIDAC, #90 TAB Prov:TRUE WHITE MD 12/11/24 Reported Medications Quetiapine Fumerate (QUETIAPINE FUMARATE) 400 Mg Tab, 1 TAB PO BID 12/09/24 Mirtazapine (Mirtazapine Oral Disintegrating Tablet) 30 Mg Tab, 1 TAB PO 12/09/24 Buspirone HCl (Buspirone HCl) 10 Mg Tab, 1 TAB PO BID 12/09/24 Tizanidine Hydrochloride (Tizanidine Hcl) 4 Mg Tab, 1 TAB PO BID 12/09/24 Hydrocodone-Acetaminophen (Hydrocodone/Acetaminophen 5-325 mg) 1 Tab Tab, 1 TAB PO TID 12/09/24 Information Source: Patient Mode of Arrival: Ambulatory Timing: Days Duration: Since onset Prehospital treatment: None Quality: Aching Vomitus: Food Particles Stool: Normal Severity: Moderate Recent: None Recent Hx of: None Pain Location: Diffuse Associated sign and symptoms: Nausea, Vomiting, Abdominal Pain Past Medical History PAST MEDICAL HISTORY: Denies Surgical History: Denies all surgeries Family History Family History: Reviewed,noncontributory to illness Social History Smoker: Less Than 1 Pack/Day Alcohol: Denies ETOH Use Drugs: Denies Drug Use Lives In: Home Constitutional: denies: chills, diaphoresis, fatigue, fever, malaise, sweats, weakness, others EENTM: denies: blurred vision, double vision, ear bleeding, ear discharge, ear drainage, ear pain, ear ringing, eye pain, eye redness, hearing loss, mouth corrine n, mouth swelling, nasal discharge, nose bleeding, nose congestion, nose pain, photophobia, tearing, throat pain, throat swelling, voice changes, others Respiratory: denies: cough, hemoptysis, orthopnea, SOB at rest, shortness of breath, SOB with excertion, stridor, wheezing, others Cardiovascular: denies: chest pain, dizzy spells, diaphoresis, Dyspnea on exertion, edema, irregular heart beat, left arm pain, lightheadedness, palpitations, PND, syncope, others Gastrointestinal: reports: abdominal pain, nausea, vomiting; denies: abdomen distended, blood streaked bowels, constipated, diarrhea, dysphagia, difficulty swallowing, hematemesis, melena, poor appetite, poor fluid intake, rectal bleeding, rectal pain, others Genitourinary: denies: burning, dysuria, flank pain, frequency, hematuria, incontinence, penile discharge, penile sore, pain, testicle pain, testicle swelling, urgency, others Neurological: denies: dizziness, fainting, headache, left sided numbness, left sided weakness, numbness, paresthesia, pre-existing deficit, right sided numbness, right sided weakness, seizure, speech problems, tingling, tremors, weakness, others Musculoskeletal: denies: back pain, gout, joint pain, joint swelling, muscle pain, muscle stiffness, neck pain, others Integumetry: denies: bruises, change in color, change in hair/nails, dryness, laceration, lesions, lumps, rash, wounds, others Allergic/Immunocompromised: denies: Difficulty Healing, Frequent Infections, Hives, Itching, others Hematologic/Lymphatic: denies: anemia, blood clots, easy bleeding, easy bruising, swollen glands, others Endocrine: denies: excessive hunger, excessive sweating, excessive thirst, excessive urination, flushing, intolerance to cold, intolerance to heat, unexplained weight gain, unexplained weight loss, others Psychiatric: denies: anxiety, bipolar disorder, depression, hopeless, panic disorder, schizophrenia, sleepless, suicidal, others All Other Systems: Reviewed and Negative Physical Exam General Appearance: Moderate Distress, Normal HEENT: Normal ENT Inspection, Pharynx Normal, TMs Normal Neck: Full Range of Motion, Non-Tender, Normal, Normal Inspection Respiratory: Chest Non-Tender, Lungs Clear, No Accessory Muscle Use, No Respiratory Distress, Normal Breath Sounds Cardiovascular: No Edema, No JVD, No Murmur, No Gallop, Normal Peripheral Pulses, Tachycardia Breast Exam: Deferred Gastrointestinal: No Organomegaly, Non Tender, No Pulsatile Mass, Normal Bowel Sounds, Soft Genitalia: Deferred Pelvic: Deferred Rectal: Deferred Extremities: No calf tenderness, Normal capillary refill, Normal inspection, Normal range of motion, Non-tender, No pedal edema Musculoskeletal : Apperance: Normal Neurologic: Alert, nurse administrator II-XII nml as Tested, No Motor Deficits, Normal Affect, Normal Mood, No Sensory Deficits Cerebellar Function: Normal Reflexes: Normal Skin: Dry, Normal Color, Warm Peripheral Pulses: 3+ Radial (R), 3+ Radial (L) Lymphatic: No Adenopathy EKG EKG : Pulse Rate (adult): [address] [place]: Normal Cardiac Rhythm: ST Block: None Hypertrophy: None ST: Normal Was a procedure done? Was a procedure done?: No GI differential Dx Differential Diagnosis: Constipation, Diverticular disease, Esophagitis, Gastritis/PUD, Gastroenteritis X-Ray, Labs, Meds, VS Vital Signs Date Time Temp Pulse Resp B/P (MAP) Pulse Ox O2 Delivery O2 Flow Rate FiO2 01/08/25 10:42 111 18 120/94 01/08/25 09:32 98.6 104 16 136/97 (110) 99 98.6 01/08/25 07:18 130 22 96 Room Air* 0 21 01/08/25 07:18 98.0 130 22 157/100 (119) 96 98.0 01/08/25 07:16 130 22 157/100 01/08/25 06:37 121 01/08/25 05:46 121 01/08/25 05:15 98.5 118 18 122/86 (98) 97 98.5 Lab Test 01/08/25 06:38 Range/Units White Blood Count 17.2 H 4.4-10.8 10^3/uL Red Blood Count 5.23 4.5-5.90 10^6/uL Hemoglobin 15.7 13.5-17.5 g/dL Hematocrit 46.8 41.0-53.0 % Mean Corpuscular Volume 89.6 80.0-100.0 fL Mean Corpuscular Hemoglobin 30.1 28.0-32.0 pg Mean Corpuscular Hemoglobin Concent 33.6 32.0-36.0 g/dL Red Cell Distribution Width 14.7 H 11.8-14.3 % Platelet Count 355 140-450 10^3/uL Mean Platelet Volume 7.8 6.9-10.8 fL Neutrophils (%) (Auto) 84.9 H 37.0-80.0 % Lymphocytes (%) (Auto) 8.6 L 10.0-50.0 % Monocytes (%) (Auto) 6.3 0.0-12.0 % Eosinophils (%) (Auto) 0.0 0.0-7.0 % Basophils (%) (Auto) 0.2 0.0-2.0 % Neutrophils # (Auto) 14.6 H 1.6-8.6 10 ^3/uL Lymphocytes # (Auto) 1.5 0.4-5.4 10 ^3/uL Monocytes # (Auto) 1.1 0-1.3 10 ^3/uL Eosinophils # (Auto) 0 0-0.8 10 ^3/uL Basophils # (Auto) 0 0-0.2 10 ^3/uL Nucleated Red Blood Cells 0.0 % Sodium Level 139 136-145 mmol/L Potassium Level 3.5 3.5-5.1 mmol/L Chloride Level 98 98-107 mmol/L Carbon Dioxide Level 21 20-31 mmol/L Anion Gap 20 H 5-15 Blood Urea Nitrogen 15 9-23 mg/dL Creatinine 1.30 0.700-1.30 mg/dL Glomerular Filtration Rate Calc 73 >90 mL/min BUN/Creatinine Ratio 11.5 10.0-20.0 Serum Glucose 115 H 74-106 mg/dL Calcium Level 10.8 H 8.7-10.4 mg/dL Troponin I High Sensitivity 4 </=54 ng/L Current Medications Medications (Trade) Dose Ordered Sig/Jermain Route Start Time Stop Time Status Last Admin Sodium Chloride 1,000 ml @ 1,000 mls/hr Q1H ONCE IV 01/08/25 06:30 01/08/25 07:29 DC 01/08/25 07:17 Ondansetron HCl (Zofran) 4 mg ONCE ONCE IV 01/08/25 06:30 01/08/25 06:31 DC 01/08/25 07:02 Morphine Sulfate 4 mg ONCE ONCE IV 01/08/25 06:30 01/08/25 06:31 DC 01/08/25 07:16 Pantoprazole Sodium (Protonix) 40 mg ONCE ONCE IV 01/08/25 06:30 01/08/25 06:31 DC 01/08/25 07:14 Prochlorperazine Edisylate (Compazine Inj) 10 mg ONCE ONCE IV 01/08/25 07:15 01/08/25 07:16 DC 01/08/25 07:18 Patient alert. Complaining of nausea vomiting. Vitals stable. Establish intravenous access. Was given fluids. Abdomen is soft. Was given Zofran. Possible gastritis. Was given Protonix. Was given morphine. Explained to the patient. Continue monitoring. WBC elevated. Hemoglobin within normal limits. Was given Rocephin. Was given Flagyl. Time of 1ST Reevaluation: 06:42 Reevaluation 1ST: Unchanged Patient Education/Counseling: Diagnosis, Treatment, Need For Follow Up Family Education/Counseling: No Family Present SEPSIS Sepsis Screen Date sepsis recognized/suspect: Jan 08, 2025 Time Sepsis recognized/suspect: 1514 Recent Procedure: No On Antibiotic Therapy: No Respiratory Rate >20: No Heart Rate >90: No Temp<36 C (96.8 F) or >38.3 C: No SBP <90 or MAP <65 mmHG: No New Acute Mental Status Change: No Is the patient on CPAP, BIPAP,: No Physician Orders Electrocardigram (01/08/25 05:44) Drug Screen (01/08/25 06:26) Vital Signs Date Time Temp Pulse Resp B/P (MAP) Pulse Ox O2 Delivery O2 Flow Rate FiO2 01/08/25 10:42 111 18 120/94 01/08/25 09:32 98.6 104 16 136/97 (110) 99 98.6 01/08/25 07:18 130 22 96 Room Air* 0 21 01/08/25 07:18 98.0 130 22 157/100 (119) 96 98.0 01/08/25 07:16 130 22 157/100 01/08/25 06:37 121 01/08/25 05:46 121 01/08/25 05:15 98.5 118 18 122/86 (98) 97 98.5 Laboratory Tests Test 01/08/25 06:38 White Blood Count 17.2 10^3/uL (4.4-10.8) H Medications Medications Dose Ordered Sig/Jermain Route Start Time Stop Time Status Last Admin Dose Admin Morphine Sulfate 4 mg ONCE ONCE IV 01/08/25 06:30 01/08/25 06:31 DC 01/08/25 07:16 Ondansetron HCl 4 mg ONCE ONCE IV 01/08/25 06:30 01/08/25 06:31 DC 01/08/25 07:02 Pantoprazole Sodium 40 mg ONCE ONCE IV 01/08/25 06:30 01/08/25 06:31 DC 01/08/25 07:14 Prochlorperazine Edisylate 10 mg ONCE ONCE IV 01/08/25 07:15 01/08/25 07:16 DC 01/08/25 07:18 Sodium Chloride 1,000 ml @ 1,000 mls/hr Q1H ONCE IV 01/08/25 06:30 01/08/25 07:29 DC 01/08/25 07:17 Departure 1 Departure Time of Disposition: 06:35 Impression: Primary Impression: Acute abdominal pain Additional Impression: Nausea & vomiting Qualified Codes: R11.2 - Nausea with vomiting, unspecified Disposition: 09 ADMITTED INPATIENT Admit to: Med Surg Condition: Guarded Critical Care Note Critical Care Time?: No Stability Stability form required: No Heart Score Heart Score: Heart Score Response (Comments) Value History Slightly Suspicious 0 EKG Normal 0 Age <45 0 Risk Factors No known risk factors 0 Troponin Normal limit 0 Total 0 I personally scribed for NELLA ESTRELLA MD ([email or web address]) on 01/08/25 at 06:27. Electronically submitted by Jonathan Robins ([email or web address]). I personally scribed for NELLA ESTRELLA MD ([email or web address]) on 01/08/25 at 06:37. Electronically submitted by Jonathan Robins ([email or web address]). NELLA ESTRELLA MD Jan 08, 2025 06:27
[2025-01-08] MEDS: ONDANSETRON HCL 4 MG/2 ML VIAL IV ONE (07:02)
[2025-01-08 07:09] LABS: Basophils # (auto) 0 10 ^3/uL (0-0.2); Basophils % (auto) 0.2 % (0.0-2.0); Eosinophils # (auto) 0 10 ^3/uL (0-0.8); Hematocrit 46.8 % (41.0-53.0); Hemoglobin 15.7 g/dL (13.5-17.5); Lymphocytes # (auto) 1.5 10 ^3/uL (0.4-5.4); Lymphocytes % (auto) 8.6 % (10.0-50.0); Mean Corpuscular Hemoglobin 30.1 pg (28.0-32.0); Mean Corpuscular Hgb Conc. 33.6 g/dL (32.0-36.0); Mean Corpuscular Volume 89.6 fL (80.0-100.0); Monocytes # (auto) 1.1 10 ^3/uL (0-1.3); Monocytes % (auto) 6.3 % (0.0-12.0); Neutrophils # (auto) 14.6 10 ^3/uL (1.6-8.6); Neutrophils % (auto) 84.9 % (37.0-80.0); Platelet Count (auto) 355 10^3/uL (140-450); Red Blood Cells 5.23 10^6/uL (4.5-5.90); Red Cell Distribution Width 14.7 % (11.8-14.3); White Blood Cell 17.2 10^3/uL (4.4-10.8)
[2025-01-08] MEDS: PANTOPRAZOLE 40 MG/10 ML VIAL INJ IV ONE (07:14)
[2025-01-08] MEDS: MORPHINE SULFATE 4 MG/ML SYR/VIAL IV ONE (07:16)
[2025-01-08] MEDS: SODIUM CHLORIDE 0.9% 1,000 ML IV ONE ×3 (07:17→11:26)
[2025-01-08 07:18] VITALS: PULSE 130; RESP 22; O2SAT 96
[2025-01-08] MEDS: PROCHLORPERAZINE EDISYLATE 5 MG/ML 2ML VIAL IV ONE (07:18)
[2025-01-08] MEDS: PROCHLORPERAZINE EDISYLATE 5 MG/ML 2ML VIAL ONE (07:18)
[2025-01-08 07:25] LABS: Anion Gap 20 (5-15)
[2025-01-08 07:27] LABS: Sodium 139 mmol/L (136-145)
[2025-01-08 07:28] LABS: Calcium 10.8 mg/dL (8.7-10.4); Carbon Dioxide 21 mmol/L (20-31); Chloride 98 mmol/L (98-107); Potassium 3.5 mmol/L (3.5-5.1)
[2025-01-08 07:41] LABS: Glucose 115 mg/dL (74-106)
[2025-01-08 08:23] LABS: BUN/Creatinine Ratio 11.5 (10.0-20.0); Blood Urea Nitrogen 15 mg/dL (9-23)
[2025-01-08] MEDS: cefTRIAXone 1GM/50ML D5W 50 ML IV ONE (11:24)
[2025-01-08] MEDS: metroNIDAZOLE 500MG/100ML 100 ML IV ONE (11:25)
--- NOTE | 2025-01-08 12:03 | DVH ---
EXAM DESCRIPTION: CT CT AB PEL WO CON-NO ORAL OR IV CLINICAL HISTORY: enteritis COMPARISON: CT CT AB PEL WO CON-NO ORAL OR IV on DOS: 12/08/24 TECHNIQUE: CT abdomen and pelvis without IV contrast was performed. Coronal and sagittal MPR images were generat ed.CTDI/ DLP = 13.84 / 648.65 Dose reduction technique with one or more of the following methods was performed: Automated exposure control, adjustment of the mA and/or kV according to patient size, use of iterative reconstruction [place] FINDINGS: Lower chest: Clear lung bases. Liver: Homogenous in attenuation. . Biliary: No calcified gallstones. No biliary ductal dilatation. Pancreas: No fat stranding or focal lesion. Spleen: Normal in size.. Adrenal glands: No nodularity. Kidneys: Punctate left renal calculus. No hydroureteronephrosis. . Bladder: No bladder wall thickening. Reproductive organs: Normal. Bowel: No bowel wall thickening or dilatation. Normal appendix. There is circumferential wall thicke rhonda of the minimal imaged distal esophagus. Peritoneum: No free fluid. No free air. Vessels: Normal caliber abdominal aorta. . Lymph nodes: No suspicious lymph nodes. Soft tissues: Unremarkable. . Osseous structures: No acute fracture or subluxation. No suspicious osseous lesions. IMPRESSION: 1. Wall thickening of the distal esophagus, suspicious for esophagitis. Recommend follow-up with endo scopy as underlying malignancy cannot be excluded. 2. Punctate left renal calculus. No hydronephrosis.
[2025-01-08] MEDS ORDERED: HYDROcodone-ACET 5/325MG TAB PO PRN (12:30)
[2025-01-08 13:15] LABS: Amphetamine Screen, Urine Pos (NEGATIVE); Barbiturate Scree,Urine Neg (NEGATIVE); Benzodiazephine Screen, Urine Neg (NEGATIVE); Cocaine Screen, Urine Neg (NEGATIVE); Opiate Scree,Urine Pos (NEGATIVE)
[2025-01-08 13:16] LABS: Cannabinoid Screen, Urine Neg (NEGATIVE); Phencyclidine Screen, Urine Neg (NEGATIVE)
[2025-01-08] MEDS: ONDANSETRON HCL 4 MG/2 ML VIAL IV PRN (13:24)
[2025-01-08] MEDS: NYSTATIN (MOUTH-THROAT) 500,000 UNITS/5 ML SUSP MT SCH (13:24)
--- NOTE | 2025-01-08 13:24 | DVHHP2 ---
History of Present Illness Reason for Visit: Abdominal pain History of Present Illness This is a 34-year-old male with history of GERD presents to the ED with chief complaint of abdominal pain associated with nausea and vomiting x3 days. He states that his pain is localized diffusely, nonradiating and describes pain as aching 8/10 on pain scale one through 10. He was recently here at this facility and was discharged on Dec 11 2024 for similar symptoms in which he was seen by Dr. Sam Paul who performed endoscopy. The patient is concerned about his symptoms and would like to be further evaluated and treated. The patient will be admitted under hospitalist care to the medical-surgical unit. The patient denies fever, chills, dizziness, shortness of breath, chest pain, diarrhea and other associated symptoms. The plan has been discussed with the patient in which all questions concerns have been addressed. GI: GERD Past Surgical History: None Family History: None Smoke: No ALCOHOL: none Drugs: None Lives: with Family Domestic Violence: Neg Review of Systems Gastrointestinal: Nausea, Vomiting, Abdominal Pain Allergies: Coded Allergies: NO KNOWN ALLERGIES (Unverified , 03/22/21) Medications Current Medications Medications Dose Ordered Sig/Jermain Route Start Time Stop Time Status Last Admin Dose Admin Pantoprazole Sodium 40 mg DAILY IV 01/09/25 10:00 UNV Buspirone HCl 10 mg BID PO 01/08/25 22:00 UNV Acetaminophen/ Hydrocodone Bitart 1 tab TID PO 01/08/25 14:00 UNV Mirtazapine 30 mg DAILY PO 01/09/25 10:00 UNV Nystatin 5 ml QID MT 01/08/25 12:00 UNV Sucralfate 1 gm QID PO 01/08/25 12:00 UNV Patient Own Medication 1 tab BID PO 01/08/25 22:00 UNV Patient Own Medication 1 tab BID PO 01/08/25 22:00 UNV Ceftriaxone Sodium 50 ml @ 100 mls/hr DAILY@09 IV 01/09/25 09:00 UNV Metronidazole 100 ml @ 100 mls/hr Q8HR IV 01/08/25 14:00 UNV Pantoprazole Sodium 40 mg DAILY IV 01/09/25 10:00 UNV Sodium Chloride 1,000 ml @ 120 mls/hr Q8H20M IV 01/08/25 12:30 UNV Acetaminophen/ Hydrocodone Bitart 1 tab Q4HP PRN PO 01/08/25 12:30 UNV Ondansetron HCl 4 mg Q4HP PRN IV 01/08/25 12:30 UNV Enoxaparin Sodium 40 mg DAILY SC 01/09/25 10:00 UNV Acetaminophen 650 mg Q6HP PRN PO 01/08/25 12:30 UNV Exam Vital Signs Vital Signs Date Time Temp Pulse Resp B/P (MAP) Pulse Ox O2 Delivery O2 Flow Rate FiO2 01/08/25 11:23 98.1 120 20 150/103 (119) 95 98.1 01/08/25 07:18 Room Air* 0 21 General Appearance: Alert, Oriented X3, Cooperative, No acute distress HEENT: Atraumatic, PERRLA, Mucous membr. moist/pink Respiratory: Clear to auscultation, Normal air movement Cardiovascular: Normal S1, Normal S2, No murmurs Abdominal: Normal bowel sounds, Soft, No hepatospenomegaly, No masses Extremities: No clubbing, No cyanosis, No edema, Normal pulses, No tenderness/swelling Skin: No rashes, No breakdown Neuro: Normal gait, Normal speech, Normal tone, Sensation intact, Cranial nerves 3-12 NL, Reflexes 2+ Psych/Mental Status: Mental status NL, Mood NL Labs/Xrays Labs Test 01/08/25 11:30 01/08/25 06:38 Range/Units Lactic Acid Level 0.8 0.4-2.0 mmol/L White Blood Count 17.2 H 4.4-10.8 10^3/uL Red Blood Count 5.23 4.5-5.90 10^6/uL Hemoglobin 15.7 13.5-17.5 g/dL Hematocrit 46.8 41.0-53.0 % Mean Corpuscular Volume 89.6 80.0-100.0 fL Mean Corpuscular Hemoglobin 30.1 28.0-32.0 pg Mean Corpuscular Hemoglobin Concent 33.6 32.0-36.0 g/dL Red Cell Distribution Width 14.7 H 11.8-14.3 % Platelet Count 355 140-450 10^3/uL Mean Platelet Volume 7.8 6.9-10.8 fL Neutrophils (%) (Auto) 84.9 H 37.0-80.0 % Lymphocytes (%) (Auto) 8.6 L 10.0-50.0 % Monocytes (%) (Auto) 6.3 0.0-12.0 % Eosinophils (%) (Auto) 0.0 0.0-7.0 % Basophils (%) (Auto) 0.2 0.0-2.0 % Neutrophils # (Auto) 14.6 H 1.6-8.6 10 ^3/uL Lymphocytes # (Auto) 1.5 0.4-5.4 10 ^3/uL Monocytes # (Auto) 1.1 0-1.3 10 ^3/uL Eosinophils # (Auto) 0 0-0.8 10 ^3/uL Basophils # (Auto) 0 0-0.2 10 ^3/uL Nucleated Red Blood Cells 0.0 % Sodium Level 139 136-145 mmol/L Potassium Level 3.5 3.5-5.1 mmol/L Chloride Level 98 98-107 mmol/L Carbon Dioxide Level 21 20-31 mmol/L Anion Gap 20 H 5-15 Blood Urea Nitrogen 15 9-23 mg/dL Creatinine 1.30 0.700-1.30 mg/dL Glomerular Filtration Rate Calc 73 >90 mL/min BUN/Creatinine Ratio 11.5 10.0-20.0 Serum Glucose 115 H 74-106 mg/dL Calcium Level 10.8 H 8.7-10.4 mg/dL Troponin I High Sensitivity 4 </=54 ng/L ORDERING PHYSICIAN: NELLA ESTRELLA MD PROCEDURE(s): ABPL - CT AB PEL WO CON-NO ORAL OR IV REASON: enteritis ORDER NUMBER(s): [id number], ACCESSION NUMBER(s): [id number] EXAM DESCRIPTION: CT CT AB PEL WO CON-NO ORAL OR IV CLINICAL HISTORY: enteritis COMPARISON: CT CT AB PEL WO CON-NO ORAL OR IV on DOS: 12/08/24 TECHNIQUE: CT abdomen and pelvis without IV contrast was performed. Coronal and sagittal MPR images were generated.CTDI/ DLP = 13.84 / 648.65 Dose reduction technique with one or more of the following methods was performed: Automated exposure control, adjustment of the mA and/or kV according to patient size, use of iterative reconstruction technique FINDINGS: Lower chest: Clear lung bases. Liver: Homogenous in attenuation. . Biliary: No calcified gallstones. No biliary ductal dilatation. Pancreas: No fat stranding or focal lesion. Spleen: Normal in size.. Adrenal glands: No nodularity. Kidneys: Punctate left renal calculus. No hydroureteronephrosis. . Bladder: No bladder wall thickening. Reproductive organs: Normal. Bowel: No bowel wall thickening or dilatation. Normal appendix. There is circumferential wall thickening of the minimal imaged distal esophagus. Peritoneum: No free fluid. No free air. Vessels: Normal caliber abdominal aorta. . Lymph nodes: No suspicious lymph nodes. Soft tissues: Unremarkable. . Osseous structures: No acute fracture or subluxation. No suspicious osseous lesions. IMPRESSION: 1. Wall thickening of the distal esophagus, suspicious for esophagitis. Recommend follow-up with endoscopy as underlying malignancy cannot be excluded. 2. Punctate left renal calculus. No hydronephrosis. ATED BY: JESUS VILLEGAS MD DICTATED DATE/TIME: 01/08/25 1201 SIGNED BY: JESUS VILLEGAS MD SIGNED DATE/TIME: 01/08/25 1201 CC: Assessment/Plan Assessment/Plan Abdominal pain- chief complaint of 8/10 abdominal pain associated with nausea and vomiting x3 days Recently admitted and discharged at this facility on 12/11/2024 Admit to medical-surgical unit Reviewed CBC shows leukocytosis Reviewed BMP potassium 3.1, elevated gap at [address] abdomen/pelvis shows esophagitis recommend endoscopy questionable underlying malignancy-patient did have recent endoscopy by Dr. Sam Paul showing esophagitis IV hydration 2 L given ER IV antibiotic ceftriaxone and metronidazole IV Toradol for pain IV antiemetic as needed IV Protonix Carafate daily Lactic acid pending Consider to reconsult Sam Paul if further evaluation and recommendation are needed Chronic pain syndrome Resume preop Pain medication as prescribed Reconcile home medication Labs in a.m. DVT prophylaxis PUD prophylaxis Discussed plan of care with the patient in which all questions concerns have b een addressed Plan discussed with: Patient My Orders Orders - SALAZAR DALAL MIXED [employer] Procedure Category Date Status Time Pantoprazole PHA 01/09/25 Logged (Protonix) 10:00 Buspirone Hcl Tablet PHA 01/08/25 Logged (Buspar Tablet) 22:00 Hydrocodone-Acet PHA 01/08/25 Logged 5/325mg Tab (Suring 14:00 Mirtazapine Tablet PHA 01/09/25 Logged (Remeron Tablet) 10:00 Nystatin PHA 01/08/25 Logged (Mouth-Throat) 12:00 Sucralfate Susp PHA 01/08/25 Logged (Carafate Susp) 12:00 (Nf) Quetiapine PHA 01/08/25 Logged Fumerate (Quetiapine 22:00 (Nf) Tizanidine PHA 01/08/25 Logged Hydrochloride 22:00 Ceftriaxone 1gm/50ml PHA 01/09/25 Logged D5w (Rocephin) 09:00 Metronidazole PHA 01/08/25 Logged 500mg/100ml (Flagyl 14:00 Pantoprazole PHA 01/09/25 Logged (Protonix) 10:00 Admit ADMIT 01/08/25 Transmitted 12:19 Sodium Chloride 0.9% PHA 01/08/25 Logged 12:30 Hydrocodone-Acet PHA 01/08/25 Logged 5/325mg Tab (Suring 12:30 Ondansetron Hcl PHA 01/08/25 Logged (Zofran) 12:30 Enoxaparin Sodium PHA 01/09/25 Logged (Lovenox) 10:00 Complete Blood Count LAB 01/09/25 Verified 04:00 Comprehensive LAB 01/09/25 Verified Metabolic Panel 04:00 Condition: Fair JOSE 01/08/25 In Process 12:19 Acetaminophen Tablet PHA 01/08/25 Logged (Tylenol Tablet) 12:30 Clear Liq Diet DIET 01/08/25 Transmitted Lunch Bedrest With Bathroom JOSE 01/08/25 In Process Privileg 12:19 Date of Service: Jan 08, 2025 Billing Provider: SALAZAR DALAL Common Visit Codes: [id number] INP/OBS CARE (HIGH) SALAZAR DALALP Jan 08, 2025 13:24
[2025-01-08] MEDS: KETOROLAC TROMETH 60MG/2ML VIAL IM ONE (13:25)
[2025-01-08] MEDS: metroNIDAZOLE 500MG/100ML 100 ML IV SCH (13:27)
[2025-01-08] MEDS: SUCRALFATE 1 GM/10 ML ORAL SUSP PO SCH (13:30)
[2025-01-08] MEDS: SODIUM CHLORIDE 0.9% 1,000 ML IV SCH (13:32)
[2025-01-08] MEDS: HYDROcodone-ACET 5/325MG TAB PO PRN (13:41)
[2025-01-08] MEDS ORDERED: HYDROcodone-ACET 5/325MG TAB PO SCH (14:00)
[2025-01-08 16:10] VITALS: BP 141/83; PULSE 104; RESP 16; TEMP 98.3; O2SAT 94
[2025-01-08] MEDS: ACETAMINOPHEN 325 MG TAB PO PRN (18:17)
[2025-01-08 18:23] VITALS: BP 135/76; PULSE 95; RESP 12; TEMP 98.6; O2SAT 96
[2025-01-08 21:00] VITALS: BP 121/66; PULSE 76; RESP 18; TEMP 98.6; O2SAT 97
[2025-01-08] MEDS: Tizanidine Hydrochloride 4 MG TABLET PO SCH (22:00)
[2025-01-08] MEDS: busPIRone HCL 10 MG TAB PO SCH (22:18)
[2025-01-08] MEDS: QUEtiapine FUMARATE 100 MG TAB PO SCH (22:19)
[2025-01-08] MEDS: MORPHINE SULFATE INJ 2 MG/ml SYRG IV ONE (23:57)
[2025-01-08 23:59] VITALS: BP 145/97; PULSE 76; RESP 14; TEMP 98.4; O2SAT 97
[2025-01-09 01:00] VITALS: BP 113/63; PULSE 88; RESP 18; TEMP 97; O2SAT 95
[2025-01-09] MEDS: LORazepam 2MG/ML-1ML VIAL IV ONE (02:52)
[2025-01-09 07:30] LABS: Basophils # (auto) 0.1 10 ^3/uL (0-0.2); Basophils % (auto) 0.8 % (0.0-2.0); Eosinophils # (auto) 0.2 10 ^3/uL (0-0.8); Eosinophils % (auto) 1.8 % (0.0-7.0); Hematocrit 37.6 % (41.0-53.0); Hemoglobin 12.6 g/dL (13.5-17.5); Lymphocytes # (auto) 1.5 10 ^3/uL (0.4-5.4); Lymphocytes % (auto) 14.8 % (10.0-50.0); Mean Corpuscular Hemoglobin 30.4 pg (28.0-32.0); Mean Corpuscular Hgb Conc. 33.7 g/dL (32.0-36.0); Mean Corpuscular Volume 90.4 fL (80.0-100.0); Monocytes # (auto) 0.8 10 ^3/uL (0-1.3); Monocytes % (auto) 8.2 % (0.0-12.0); Neutrophils # (auto) 7.4 10 ^3/uL (1.6-8.6); Neutrophils % (auto) 74.4 % (37.0-80.0); Platelet Count (auto) 296 10^3/uL (140-450); Red Blood Cells 4.15 10^6/uL (4.5-5.90); Red Cell Distribution Width 14.4 % (11.8-14.3); White Blood Cell 9.9 10^3/uL (4.4-10.8)
[2025-01-09 07:51] LABS: Alanine Aminotransferase 18 U/L (7-40); Albumin 4.1 g/dL (3.2-4.8); Anion Gap 10 (5-15); Aspartate Aminotransferase 21 U/L (<34); BUN/Creatinine Ratio 12.5 (10.0-20.0); Blood Urea Nitrogen 11 mg/dL (9-23); Carbon Dioxide 26 mmol/L (20-31); Chloride 105 mmol/L (98-107); Glucose 93 mg/dL (74-106); Sodium 141 mmol/L (136-145)
[2025-01-09 08:04] LABS: Alkaline Phosphatase 38 U/L (46-116); Bilirubin, Total 1.3 mg/dL (0.2-1.0); Potassium 3.5 mmol/L (3.5-5.1)
[2025-01-09 09:00] VITALS: BP 124/81; PULSE 84; RESP 17; TEMP 98.3; O2SAT 95
[2025-01-09] MEDS: cefTRIAXone 1GM/50ML D5W 50 ML IV SCH (09:03)
[2025-01-09] MEDS: PANTOPRAZOLE 40 MG/10 ML VIAL INJ IV SCH (09:04)
[2025-01-09] MEDS: MIRTAZAPINE 30 MG TAB PO SCH (09:05)
[2025-01-09] MEDS: ENOXAPARIN SOD 40 MG/0.4 ML SYRINGE SC SCH (09:07)
[2025-01-09] MEDS ORDERED: PANTOPRAZOLE 40 MG/10 ML VIAL INJ IV SCH (10:00)
[2025-01-09 13:00] VITALS: BP 105/55; PULSE 89; RESP 17; TEMP 98.4; O2SAT 97
--- NOTE | 2025-01-09 14:50 | DVHPN2 ---
Subjective I am assuming the care of the patient from today onwards. Detailed sign out obtained. This is a 34-year-old male with a known history of GERD/recent EGD showed evidence of grade C esophagitis and esophageal ulcers as well as gastropathy was given p.o. Protonix Carafate as well as nystatin. Patient presented to the hospital with blackish vomiting and nausea. Also complaining of abdominal pain. 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 Medications Current Medications Medications Dose Ordered Sig/Jermain Route Start Time Stop Time Status Last Admin Dose Admin Pantoprazole Sodium 40 mg DAILY IV 01/09/25 10:00 01/09/25 09:04 40 MG Buspirone HCl 10 mg BID PO 01/08/25 22:00 01/09/25 09:04 10 MG Mirtazapine 30 mg DAILY PO 01/09/25 10:00 01/09/25 09:05 30 MG Nystatin 5 ml QID MT 01/08/25 12:00 01/09/25 12:33 5 ML Sucralfate 1 gm QID PO 01/08/25 12:00 01/09/25 12:33 1 GM Quetiapine Fumarate 400 mg BID PO 01/08/25 22:00 01/09/25 09:04 400 MG Patient Own Medication 1 tab BID PO 01/08/25 22:00 Ceftriaxone Sodium 50 ml @ 100 mls/hr DAILY@09 IV 01/09/25 09:00 01/09/25 09:03 100 MLS/HR Metronidazole 100 ml @ 100 mls/hr Q8HR IV 01/08/25 14:00 01/09/25 14:20 100 MLS/HR Pantoprazole Sodium 40 mg DAILY IV 01/09/25 10:00 UNV Sodium Chloride 1,000 ml @ 120 mls/hr Q8H20M IV 01/08/25 12:30 01/09/25 05:30 120 MLS/HR Acetaminophen/ Hydrocodone Bitart 1 tab Q4HP PRN PO 01/08/25 12:30 Cancel Ondansetron HCl 4 mg Q4HP PRN IV 01/08/25 12:30 01/09/25 10:56 4 MG Enoxaparin Sodium 40 mg DAILY SC 01/09/25 10:00 01/09/25 09:07 40 MG Acetaminophen 650 mg Q6HP PRN PO 01/08/25 12:30 01/08/25 18:17 650 MG Acetaminophen/ Hydrocodone Bitart 1 tab TID PRN PO 01/08/25 13:30 01/09/25 07:50 1 TAB Laboratory Results Laboratory Tests 01/09/25 07:14 Chemistry Test 01/09/25 07:14 Albumin 4.1 g/dL (3.2-4.8) Calcium Level 9.0 mg/dL (8.7-10.4) Total Protein 6.0 g/dL (5.7-8.2) LFT Test 01/09/25 07:14 Alanine Aminotransferase (ALT) 18 U/L (7-40) Alkaline Phosphatase 38 U/L (46-116) L Aspartate Amino Transferase (AST) 21 U/L (<34) Total Bilirubin 1.3 mg/dL (0.2-1.0) H Microbiology Microbiology Date/Time Source Procedure Growth Status 01/08/25 11:30 Blood Blood Culture - Preliminary NO GROWTH AFTER 24 HOURS OF INCUBATION. Resulted Assessment/Plan Assessment/Plan 34-year-old male presented to the hospital with the abdominal pain blackish vomiting found to have 1. Abdominal pain with a esophagitis 2. Recent EGD showed evidence of grade C esophagitis/esophageal ulcers/gastropathy 3. Leukocytosis -GI consultation, continue Protonix and Carafate, add nystatin. Plan discussed with: Patient Date of Service: Jan 09, 2025 Billing Provider: LETTY RILEY MD Common Visit Codes: [id number] INP/OBS CARE(MOD) LETTY RILEY MD Jan 09, 2025 14:50
[2025-01-09 17:00] VITALS: BP 126/79; PULSE 96; RESP 17; TEMP 98.3; O2SAT 96
[2025-01-09 21:00] VITALS: BP 120/74; PULSE 64; RESP 20; TEMP 99.2; O2SAT 97
[2025-01-10 01:00] VITALS: BP 133/86; PULSE 71; RESP 18; TEMP 98; O2SAT 96
[2025-01-10 05:00] VITALS: BP 116/74; PULSE 59; RESP 18; TEMP 98.5; O2SAT 96
[2025-01-10] MEDS: HYDROcodone-ACET 10/325MG TAB PO ONE (07:04)
--- NOTE | 2025-01-10 07:20 | ECG ---
[facility] Test Date: 2025-01-10 Test Time: 06:16:47 Pat Name: JUAN C CORTEZ Department: Respiratoy Room: 0298 A Gender: M Behavioral Health Professional: DULCE MARIA : 1990 Requested By: LETTY RILEY Order Number: [id number] Reading MD: Measurements Intervals [place] Rate: 66 P: 47 PA: 157 QRS: 63 QRSD: 107 T: 52 QT: 402 QTc: 422 Interpretive Statements Sinus rhythm Anteroseptal infarct, old Please click the below link to view image of tracing.
--- NOTE | 2025-01-10 12:19 | DVHINCON2 ---
Date of Service if different f: Jan 10, 2025 Time of Service: 12:17 Consultation (CAMP) Labs Laboratory Tests Test 01/08/25 06:38 01/08/25 11:30 01/08/25 12:49 01/09/25 07:14 Troponin I High Sensitivity 4 ng/L (</=54) Lactic Acid Level 0.8 mmol/L (0.4-2.0) Urine Opiates Screen Pos (NEGATIVE) Urine Fentanyl Screen Neg (NEGATIVE) Urine Barbiturates Screen Neg (NEGATIVE) Urine Phencyclidine Screen Neg (NEGATIVE) Urine Amphetamines Screen Pos (NEGATIVE) Urine Benzodiazepines Screen Neg (NEGATIVE) Urine Cocaine Screen Neg (NEGATIVE) Urine Cannabinoids Screen Neg (NEGATIVE) White Blood Count 9.9 10^3/uL (4.4-10.8) Red Blood Count 4.15 10^6/uL (4.5-5.90) Hemoglobin 12.6 g/dL (13.5-17.5) Hematocrit 37.6 % (41.0-53.0) Mean Corpuscular Volume 90.4 fL (80.0-100.0) Mean Corpuscular Hemoglobin 30.4 pg (28.0-32.0) Mean Corpuscular Hemoglobin Concent 33.7 g/dL (32.0-36.0) Red Cell Distribution Width 14.4 % (11.8-14.3) Platelet Count 296 10^3/uL (140-450) Mean Platelet Volume 7.1 fL (6.9-10.8) Neutrophils (%) (Auto) 74.4 % (37.0-80.0) Lymphocytes (%) (Auto) 14.8 % (10.0-50.0) Monocytes (%) (Auto) 8.2 % (0.0-12.0) Eosinophils (%) (Auto) 1.8 % (0.0-7.0) Basophils (%) (Auto) 0.8 % (0.0-2.0) Neutrophils # (Auto) 7.4 10 ^3/uL (1.6-8.6) Lymphocytes # (Auto) 1.5 10 ^3/uL (0.4-5.4) Monocytes # (Auto) 0.8 10 ^3/uL (0-1.3) Eosinophils # (Auto) 0.2 10 ^3/uL (0-0.8) Basophils # (Auto) 0.1 10 ^3/uL (0-0.2) Nucleated Red Blood Cells 0.0 % Sodium Level 141 mmol/L (136-145) Potassium Level 3.5 mmol/L (3.5-5.1) Chloride Level 105 mmol/L (98-107) Carbon Dioxide Level 26 mmol/L (20-31) Anion Gap 10 (5-15) Blood Urea Nitrogen 11 mg/dL (9-23) Creatinine 0.88 mg/dL (0.700-1.30) Glomerular Filtration Rate Calc 115 mL/min (>90) BUN/Creatinine Ratio 12.5 (10.0-20.0) Serum Glucose 93 mg/dL (74-106) Calcium Level 9.0 mg/dL (8.7-10.4) Total Bilirubin 1.3 mg/dL (0.2-1.0) Aspartate Amino Transf (AST/SGOT) 21 U/L (<34) Alanine Aminotransferase (ALT/SGPT) 18 U/L (7-40) Alkaline Phosphatase 38 U/L (46-116) Total Protein 6.0 g/dL (5.7-8.2) Albumin 4.1 g/dL (3.2-4.8) Microbiology Date/Time Source Procedure Growth Status 01/08/25 11:30 Blood Blood Culture - Preliminary NO GROWTH AFTER 48 HOURS OF INCUBATION. Resulted Vitals Vital Signs Date Time Temp Pulse Resp B/P (MAP) Pulse Ox O2 Delivery O2 Flow Rate FiO2 01/10/25 08:00 Room Air* 0 21 01/10/25 05:00 98.5 59 18 116/74 (88) 96 98.5 Current medications Current Medications Medications Dose Ordered Sig/Jermain Route Start Time Stop Time Status Last Admin Dose Admin Pantoprazole Sodium 40 mg DAILY IV 01/09/25 10:00 01/10/25 09:51 40 MG Buspirone HCl 10 mg BID PO 01/08/25 22:00 01/10/25 09:51 10 MG Mirtazapine 30 mg DAILY PO 01/09/25 10:00 01/10/25 09:51 30 MG Nystatin 5 ml QID MT 01/08/25 12:00 01/10/25 11:35 5 ML Sucralfate 1 gm QID PO 01/08/25 12:00 01/10/25 11:35 1 GM Quetiapine Fumarate 400 mg BID PO 01/08/25 22:00 01/10/25 09:51 400 MG Patient Own Medication 1 tab BID PO 01/08/25 22:00 Ceftriaxone Sodium 50 ml @ 100 mls/hr DAILY@09 IV 01/09/25 09:00 01/10/25 09:50 100 MLS/HR Metronidazole 100 ml @ 100 mls/hr Q8HR IV 01/08/25 14:00 01/10/25 05:52 100 MLS/HR Pantoprazole Sodium 40 mg DAILY IV 01/09/25 10:00 UNV Sodium Chloride 1,000 ml @ 120 mls/hr Q8H20M IV 01/08/25 12:30 01/10/25 05:52 120 MLS/HR Acetaminophen/ Hydrocodone Bitart 1 tab Q4HP PRN PO 01/08/25 12:30 Cancel Ondansetron HCl 4 mg Q4HP PRN IV 01/08/25 12:30 01/09/25 10:56 4 MG Enoxaparin Sodium 40 mg DAILY SC 01/09/25 10:00 01/10/25 09:50 40 MG Acetaminophen 650 mg Q6HP PRN PO 01/08/25 12:30 01/10/25 00:44 650 MG Acetaminophen/ Hydrocodone Bitart 1 tab TID PRN PO 01/08/25 13:30 01/10/25 11:36 1 TAB PSYCHIATRY CONSULTATION INITIAL EVALUATION REASON FOR CONSULT: SI HPI: Pt is able to give his name, location, date, and reason for presenting. Says he is there after n/v, vomiting blood. Currently, pt says he feels a little better than before. Pt lives alone. Pt says he was asked about suicide, and he was upset, felt nothing was getting done, was wondering why he was still in pain, so he made a statement about suicide. Pt does not recall what he said. Currently, pt denies SI. Says he would not shoot himself if he had a gun, admits he did say that prior, but because no one was tending to him, or caring for his pain. Pt has been in hospital about 3 days. He thinks he will be discharged today. He wants to go home. Pt is frustrated that nothing new was done, and he will be going home on the same medications he came in on. However, he contracts for safety if discharged to home, has not plan, intent or desire to end his life or harm himself. Says he can call 911 or [phone] if he has thoughts or impulses to harm himself. On psych ROS, pt reports poor sleep in general, has been sleeping in the hospital, denies psychotic symptoms, denies other symptoms of elevated mpood. PSYCHIATRIC HISTORY: DIAGNOSIS: Pt reports history of Bipolar Disorder. MEDICATION TRIALS: Switched for Seroquel to other med, takes daily. OUTPATIENT CARE: Has established care SI/SELF-INJURY/SUICIDE ATTEMPT: History of SI, no prior self harm or attempts or self injury. Denies access to firearms. SUBSTANCE USE: Denies use of drugs or etoh. MENTAL STATUS EXAMINATION: The patient is a 34-year-old man who presents as alert and oriented to person, place, time, and situation. He is irritable but cooperative, with goal-directed thought processes and normal speech. There is no evidence of perceptual disturbances, disorganized thinking, or cognitive impairment. He denies suicidal ideation at this time, expresses frustration related to the course of his medical treatment, and is able to contract for safety. Mood is frustrated; affect is congruent. Insight and judgment are intact. DIAGNOSIS: F43.20 Adjustment Disorder, Unspecified History of Bipolar Disorder (per patient report) ASSESSMENT: The patient expressed suicidal ideation during a moment of acute medical distress and perceived neglect while hospitalized, but he currently denies any suicidal thoughts, intent, or plan. He attributes his prior statements to situational frustration and pain. He is now calm, appropriate, and goal- directed. He demonstrates insight into his condition, is able to identify coping strategies (e.g., calling 911 or [phone]), and has no history of suicide attempts or self-harm. He is medically stable and expresses readiness for discharge. RECOMMENDATIONS: 1.LEGAL: No 5150 hold indicated - The patient does not meet criteria for danger to self, others, or grave disability. He is currently deemed low risk of suicide. 2.DISPOSITION: No psychiatric admission necessary - He is psychiatrically stable, with no current SI or acute psychiatric symptoms. Provide outpatient psychiatric follow-up and reinforce safety planning 3.MEDICATIONS: Continue current psychotropic medication as prescribed. AMIRA PEDRAZA MD Jan 10, 2025 12:19
[2025-01-10 12:46] LABS: Basophils # (auto) 0 10 ^3/uL (0-0.2); Basophils % (auto) 0.8 % (0.0-2.0); Eosinophils # (auto) 0.2 10 ^3/uL (0-0.8); Eosinophils % (auto) 3.4 % (0.0-7.0); Hematocrit 41.5 % (41.0-53.0); Hemoglobin 13.8 g/dL (13.5-17.5); Lymphocytes # (auto) 2.1 10 ^3/uL (0.4-5.4); Mean Corpuscular Hgb Conc. 33.4 g/dL (32.0-36.0); Mean Corpuscular Volume 89.8 fL (80.0-100.0); Monocytes # (auto) 0.4 10 ^3/uL (0-1.3); Monocytes % (auto) 7.2 % (0.0-12.0); Neutrophils # (auto) 3.1 10 ^3/uL (1.6-8.6); Neutrophils % (auto) 52.6 % (37.0-80.0); Nucleated Red Blood Cells % 0.1 %; Platelet Count (auto) 345 10^3/uL (140-450); Red Blood Cells 4.61 10^6/uL (4.5-5.90); Red Cell Distribution Width 14.6 % (11.8-14.3)
--- NOTE | 2025-01-10 14:44 | DVHDS2 ---
Discharge Summary Date of Admission Jan 08, 2025 at 12:19 Date of Discharge: Jan 10, 2025 Labs/Diagnostic Data: Laboratory Results Test 01/10/25 12:15 01/09/25 07:14 01/08/25 12:49 01/08/25 11:30 White Blood Count 6.0 10^3/uL (4.4-10.8) Red Blood Count 4.61 10^6/uL (4.5-5.90) Hemoglobin 13.8 g/dL (13.5-17.5) Hematocrit 41.5 % (41.0-53.0) Mean Corpuscular Volume 89.8 fL (80.0-100.0) Mean Corpuscular Hemoglobin 30.0 pg (28.0-32.0) Mean Corpuscular Hemoglobin Concent 33.4 g/dL (32.0-36.0) Red Cell Distribution Width 14.6 % (11.8-14.3) Platelet Count 345 10^3/uL (140-450) Mean Platelet Volume 7.4 fL (6.9-10.8) Neutrophils (%) (Auto) 52.6 % (37.0-80.0) Lymphocytes (%) (Auto) 36.0 % (10.0-50.0) Monocytes (%) (Auto) 7.2 % (0.0-12.0) Eosinophils (%) (Auto) 3.4 % (0.0-7.0) Basophils (%) (Auto) 0.8 % (0.0-2.0) Neutrophils # (Auto) 3.1 10 ^3/uL (1.6-8.6) Lymphocytes # (Auto) 2.1 10 ^3/uL (0.4-5.4) Monocytes # (Auto) 0.4 10 ^3/uL (0-1.3) Eosinophils # (Auto) 0.2 10 ^3/uL (0-0.8) Basophils # (Auto) 0 10 ^3/uL (0-0.2) Nucleated Red Blood Cells 0.1 % Sodium Level 141 mmol/L (136-145) Potassium Level 3.5 mmol/L (3.5-5.1) Chloride Level 105 mmol/L (98-107) Carbon Dioxide Level 26 mmol/L (20-31) Anion Gap 10 (5-15) Blood Urea Nitrogen 11 mg/dL (9-23) Creatinine 0.88 mg/dL (0.700-1.30) Glomerular Filtration Rate Calc 115 mL/min (>90) BUN/Creatinine Ratio 12.5 (10.0-20.0) Serum Glucose 93 mg/dL (74-106) Calcium Level 9.0 mg/dL (8.7-10.4) Total Bilirubin 1.3 mg/dL (0.2-1.0) Aspartate Amino Transferase (AST) 21 U/L (<34) Alanine Aminotransferase (ALT) 18 U/L (7-40) Alkaline Phosphatase 38 U/L (46-116) Total Protein 6.0 g/dL (5.7-8.2) Albumin 4.1 g/dL (3.2-4.8) Urine Opiates Screen Pos (NEGATIVE) Urine Fentanyl Screen Neg (NEGATIVE) Urine Barbiturates Screen Neg (NEGATIVE) Urine Phencyclidine Screen Neg (NEGATIVE) Urine Amphetamines Screen Pos (NEGATIVE) Urine Benzodiazepines Screen Neg (NEGATIVE) Urine Cocaine Screen Neg (NEGATIVE) Urine Cannabinoids Screen Neg (NEGATIVE) Lactic Acid Level 0.8 mmol/L (0.4-2.0) Test 01/08/25 06:38 Troponin I High Sensitivity 4 ng/L (</=54) Other Laboratory Tests 01/10/25 12:15 01/09/25 07:14 Brief Hx & Hospital Course: 34-year-old male presented to the hospital with the abdominal pain blackish vomiting found to have esophagitis. Patient was recently hospitalized for the same at that time EGD was done which shows evidence of grade C esophagitis esophageal ulcers and gastropathy. Patient was eventually admitted again this time. GI was consulted which currently consult was pending. Tele psych was consulted who recommended that patient is not a danger to himself and can continue with the home medication for his bipolar disorder. Patient's eloped as per bedside RN. Safety measures were taken and was notified. Condition at Discharge: Undetermined Final Diagnosis/Problems List 1. Abdominal pain secondary to esophagitis 2. Recent EGD showed evidence of grade C esophagitis/esophageal ulcers/gastropathy 3. Leukocytosis 4. Bipolar disorder currently stable Discharge Disposition: [facility] SN[facility] Discharge Will this Physician continue t: No Discharge Statement: "Patient was advised to return to the ER or call 911 if any headaches, dizziness, shortness of breath, chest pain, abdominal pain, bleeding, fevers, or worsening of medical condition. Patient was counseled about treatment plan, medications, possible side effects, patientverbalized understanding. All questions were answered to the best of my ability. This discharge took greater then 30 minutes in planning, reviewing documentation, counseling the patient, and discussing with other team members." ASSESSMENT ASSESSMENT Assessment Date of Service: Jan 10, 2025 Billing Provider: LETTY RILEY MD Common Visit Codes: 29786-FZB/OBS DISCH DAY <30MIN, 66388-KGI/OBS DISCH DAY >30min LETTY RILEY MD Jan 10, 2025 14:43
--- NOTE | 2025-01-11 07:26 | ECG ---
[facility] Test Date: 2025-01-10 Test Time: 06:15:26 Pat Name: JUAN C CORTEZ Department: Respiratoy Room: 0298 A Gender: M Transport Truck Driver: DULCE MARIA : 1990 Requested By: LETTY RILEY Order Number: [id number] Reading MD: Measurements Intervals [place] Rate: 67 P: 50 RI: 161 QRS: 67 QRSD: 107 T: 56 QT: 409 QTc: 432 Interpretive Statements Sinus rhythm ST elev, probable normal early repol pattern Please click the below link to view image of tracing.
== END 2025-01-10 13:30 | disposition left against medical advice (07) | DRG 243 ==
LOC: ER 05:11 → EDBD 05:11 → OVERFLOW 12:19 → WEST WING 22:57
PROVIDERS: ADMIT Internal Medicine; ATTEND Internal Medicine
DX: K21.00 Gastro-esophageal reflux disease with esophagitis, without bleeding (principal); R45.851 Suicidal ideations; R65.10 Systemic inflammatory response syndrome (SIRS) of non-infectious origin without acute organ dysfunction; F31.9 Bipolar disorder, unspecified; D72.829 Elevated white blood cell count, unspecified; G89.4 Chronic pain syndrome; F43.20 Adjustment disorder, unspecified; F17.210 Nicotine dependence, cigarettes, uncomplicated; Z87.19 Personal history of other diseases of the digestive system; Z79.899 Other long term (current) drug therapy
CPT/HCPCS: 36415; 74176; 80048; 80053; 80307; 83605; 84484; 85025; 87040; 93005; 96361; 96365; 96375; G0378; J1885; J2405; J2470; J3490

== ENCOUNTER 2025-03-13 21:28 | Emergency (ER) | payer MEDICAID ==
[~2025-03-13] VITALS: Ht 175.3 cm; Wt 77.3 kg
--- NOTE | 2025-03-13 21:41 | ED.PDOC ---
History of Present Illness HPI Comments 35-year-old male BIBA with prior medical history of bipolar disorder, depression and a chief complaint of the abdominal pain/shortness a breath. EMS report that the patient has been having 10/10 epigastric pain for the past three days associated with shortness a breath the, N/V/D, and mild tenderness to the area. Patient states that he has been here in the past for similar symptoms and was diagnosed for possible GERD or possible ulcer. Denies chills, fever, SOB, CP. No other associated symptoms, modifiers, recent injuries or sick contacts present at this time. Time Seen by MD: 21:30 Primary Care Provider: PIERCE Reviewed Notes: Nurses Notes, Medications, Allergies Allergies: Coded Allergies: NO KNOWN ALLERGIES (Unverified , 03/22/21) Home Meds Active Scripts Pantoprazole Sodium Sesquihydr (Protonix) 40 Mg Tab, 40 MG PO DAILY for 90 Days, #90 TAB 3 Refills Prov:RODRIGUEZ TALLEY MD 03/13/25 Famotidine (PEPCID TABLET) 20 Mg Tb, 1 TAB PO BID PRN, #60 TAB 5 Refills Prov:RODRIGUEZ TALLEY MD 03/13/25 Nystatin (Mouth-Throat) (Mycostatin (Mouth-Throat)) 500,000 Units/5 Ml Ss, 5 ML MT QID for 10 Days, #200 ML Prov:TRUE WHITE MD 12/11/24 Sucralfate (Carafate) 1 Gm/10 Ml Altagracia, 10 ML PO QID, #1200 ML Prov:TRUE WHITE MD 12/11/24 Pantoprazole Sodium Sesquihydr (Pantoprazole Sodium) 40 Mg Tab, 40 MG PO BIDAC, #90 TAB Prov:RTUE WHITE MD 12/11/24 Reported Medications Quetiapine Fumerate (QUETIAPINE FUMARATE) 400 Mg Tab, 1 TAB PO BID 12/09/24 Mirtazapine (Mirtazapine Oral Disintegrating Tablet) 30 Mg Tab, 1 TAB PO 12/09/24 Buspirone HCl (Buspirone HCl) 10 Mg Tab, 1 TAB PO BID 12/09/24 Tizanidine Hydrochloride (Tizanidine Hcl) 4 Mg Tab, 1 TAB PO BID 12/09/24 Hydrocodone-Acetaminophen (Hydrocodone/Acetaminophen 5-325 mg) 1 Tab Tab, 1 TAB PO TID 12/09/24 Information Source: Patient, Emergency Med Personnel Mode of Arrival: EMS Severity: Moderate Timing: Days Duration: Since onset, Days Prehospital treatment: None Past Medical History PAST MEDICAL HISTORY: Depression Past Medical History (Other): Bipolar disorder Patient states possible GERD or ulcers Surgical History: Denies all surgeries Family History Family History: Reviewed,noncontributory to illness, Unknown Social History Smoker: Unknown Alcohol: Denies ETOH Use Drugs: Denies Drug Use Lives In: Home Constitutional: denies: chills, diaphoresis, fatigue, fever, malaise, sweats, weakness, others EENTM: denies: blurred vision, double vision, ear bleeding, ear discharge, ear drainage, ear pain, ear ringing, eye pain, eye redness, hearing loss, mouth pain, mouth swelling, nasal discharge, nose bleeding, nose congestion, nose pain, photophobia, tearing, throat pain, throat swelling, voice changes, others Respiratory: reports: shortness of breath; denies: cough, hemoptysis, orthopnea, SOB at rest, SOB with excertion, stridor, wheezing, others Cardiovascular: denies: chest pain, dizzy spells, diaphoresis, Dyspnea on exertion, edema, irregular heart beat, left arm pain, lightheadedness, palpitations, PND, syncope, others Gastrointestinal: reports: abdominal pain, diarrhea, nausea, vomiting; denies: abdomen distended, blood streaked bowels, constipated, dysphagia, difficulty swallowing, hematemesis, melena, poor appetite, poor fluid intake, rectal ble eding, rectal pain, others Genitourinary: denies: burning, dysuria, flank pain, frequency, hematuria, inco ntinence, penile discharge, penile sore, pain, testicle pain, testicle swelling, urgency, others Neurological: denies: dizziness, fainting, headache, left sided numbness, left sided weakness, numbness, paresthesia, pre-existing deficit, right sided numbness, right sided weakness, seizure, speech problems, tingling, tremors, weakness, others Musculoskeletal: denies: back pain, gout, joint pain, joint swelling, muscle pain, muscle stiffness, neck pain, others Integumetry: denies: bruises, change in color, change in hair/nails, dryness, laceration, lesions, lumps, rash, wounds, others Allergic/Immunocompromised: denies: Difficulty Healing, Frequent Infections, Hives, Itching, others Hematologic/Lymphatic: denies: anemia, blood clots, easy bleeding, easy bruising, swollen glands, others Endocrine: denies: excessive hunger, excessive sweating, excessive thirst, excessive urination, flushing, intolerance to cold, intolerance to heat, unexplained weight gain, unexplained weight loss, others Psychiatric: denies: anxiety, bipolar disorder, depression, hopeless, panic disorder, schizophrenia, sleepless, suicidal, others All Other Systems: Reviewed and Negative Physical Exam General Appearance: No Apparent Distress, Normal HEENT: Normal ENT Inspection, Pharynx Normal, TMs Normal Neck: Full Range of Motion, Non-Tender, Normal, Normal Inspection Respiratory: Chest Non-Tender, Lungs Clear, No Accessory Muscle Use, No Respiratory Distress, Normal Breath Sounds Cardiovascular: No Edema, No JVD, No Murmur, No Gallop, Normal Peripheral Pulses, Regular Rate/Rhythm Breast Exam: Deferred Gastrointestinal: Epigastric (Mild tenderness to the epigastric area), No Organomegaly, No Pulsatile Mass, Normal Bowel Sounds, Soft, Tenderness (Mild tenderness to the epigastric area) Genitalia: Deferred Pelvic: Deferred Rectal: Deferred Extremities: No calf tenderness, Normal capillary refill, Normal inspection, Normal range of motion, Non-tender, No pedal edema Musculoskeletal : Apperance: Normal Neurologic: Alert, hook puller II-XII nml as Tested, No Motor Deficits, Normal Affect, Normal Mood, No Sensory Deficits Cerebellar Function: Normal Reflexes: Normal Skin: Dry, Normal Color, Warm Lymphatic: No Adenopathy Was a procedure done? Was a procedure done?: No Differential Dx Considerations may include: Differential diagnosis includes but not limited to: Pancreatitis, gastritis, peptic ulcer disease, bowel obstruction, hiatal hernia, dehydration and others X-Ray, Labs, Meds, VS Vital Signs Date Time Temp Pulse Resp B/P (MAP) Pulse Ox O2 Delivery O2 Flow Rate FiO2 03/14/25 00:00 67 18 135/96 03/13/25 23:58 98.8 67 20 135/96 (109) 96 98.8 03/13/25 21:35 98.5 87 18 130/91 99 98.5 03/13/25 21:30 89 Lab Test 03/14/25 00:19 03/13/25 21:46 Range/Units Troponin I High Sensitivity < 3 L < 3 L </=54 ng/L White Blood Count 8.1 4.4-10.8 10^3/uL Red Blood Count 5.10 4.5-5.90 10^6/uL Hemoglobin 14.8 13.5-17.5 g/dL Hematocrit 44.3 41.0-53.0 % Mean Corpuscular Volume 87.0 80.0-100.0 fL Mean Corpuscular Hemoglobin 29.0 28.0-32.0 pg Mean Corpuscular Hemoglobin Concent 33.3 32.0-36.0 g/dL Red Cell Distribution Width 15.6 H 11.8-14.3 % Platelet Count 321 140-450 10^3/uL Mean Platelet Volume 7.4 6.9-10.8 fL Neutrophils (%) (Auto) 58.5 37.0-80.0 % Lymphocytes (%) (Auto) 31.4 10.0-50.0 % Monocytes (%) (Auto) 6.0 0.0-12.0 % Eosinophils (%) (Auto) 3.2 0.0-7.0 % Basophils (%) (Auto) 0.9 0.0-2.0 % Neutrophils # (Auto) 4.7 1.6-8.6 10 ^3/uL Lymphocytes # (Auto) 2.5 0.4-5.4 10 ^3/uL Monocytes # (Auto) 0.5 0-1.3 10 ^3/uL Eosinophils # (Auto) 0.3 0-0.8 10 ^3/uL Basophils # (Auto) 0.1 0-0.2 10 ^3/uL Nucleated Red Blood Cells 0.1 % Sodium Level 140 136-145 mmol/L Potassium Level 4.1 3.5-5.1 mmol/L Chloride Level 103 98-107 mmol/L Carbon Dioxide Level 27 20-31 mmol/L Anion Gap 10 5-15 Blood Urea Nitrogen 7 L 9-23 mg/dL Creatinine 0.96 0.700-1.30 mg/dL Glomerular Filtration Rate Calc 105 >90 mL/min BUN/Creatinine Ratio 7.3 L 10.0-20.0 Serum Glucose 90 74-106 mg/dL Calcium Level 10.4 8.7-10.4 mg/dL Total Bilirubin 0.8 0.2-1.0 mg/dL Aspartate Amino Transferase (AST) 17 13-40 U/L Alanine Aminotransferase (ALT) 22 7-40 U/L Alkaline Phosphatase 40 L 46-116 U/L Total Protein 7.5 5.7-8.2 g/dL Albumin 5.1 H 3.2-4.8 g/dL Lipase 55 H 12-53 U/L Current Medications Medications (Trade) Dose Ordered Sig/Jermain Route Start Time Stop Time Status Last Admin Ondansetron HCl (Zofran Po) 4 mg ONCE ONCE PO 03/13/25 21:45 03/13/25 21:46 DC 03/13/25 23:12 Al Hydrox/Mg Hydrox/Simethicone (Maalox Plus) 30 ml ONCE ONCE PO 03/13/25 21:45 03/13/25 21:46 DC 03/13/25 23:11 Famotidine (Pepcid Tablet) 40 mg ONCE ONCE PO 03/13/25 21:45 03/13/25 21:46 DC 03/13/25 23:12 Hydromorphone HCl (Dilaudid Injection) 1 mg ONCE ONCE IM 03/14/25 00:00 03/14/25 00:01 DC 03/14/25 00:00 Ondansetron HCl (Zofran) 4 mg ONCE ONCE IV 03/14/25 00:00 03/14/25 00:01 DC 03/14/25 00:00 [place] [id number] Ph: [phone] DIAGNOSTIC IMAGING Diagnostic Imaging Report : [id number] Signed PATIENT: JUAN C CORTEZ ACCT: [id number] UNIT: [id number] : 1990 LOC: ER ROOM / BED: / AGE / SEX: 35 / M ADM STATUS: REG ER SERVICE 35 ORDERING PHYSICIAN: RODRIGUEZ TALLEY MD PROCEDURE(s): ABPL - CT AB PEL WO CON-NO ORAL OR IV REASON: abd pain ORDER NUMBER(s): [id number], ACCESSION NUMBER(s): [id number] Exam: CT CT AB PEL WO CON-NO ORAL OR IV History: abd pain Comparison Study: CT CT AB PEL WO CON-NO ORAL OR IV on DOS: 01/08/25, US KIDNEY on DOS: 12/08/24, CT CT AB PEL WO CON-NO ORAL OR IV on DOS: 12/08/24 Technique: Multidetector spiral CT of the abdomen was performed from lung bases to pubic symphysis. Imaging was performed without IV contrast. Axial, coronal and sagittal multiplanar reformats were obtained from the axial data set by the technologist. Radiation Dose : 1. Abdomen/Pelvis: CTDIvol 6.93 mGy, DLP 3.92 mGy*cm. Findings: Evaluation of solid organs is limited due to lack of intravenous contrast use. Lung Bases: No abnormality demonstrated. Liver: Normal in size. No focal lesions noted. Gallbladder and Biliary Tree: Gallbladder is collapsed. No evidence of biliary ductal dilatation. Spleen: No abnormality demonstrated. Pancreas: No abnormality demonstrated. Adrenal Glands: No abnormality demonstrated. Kidneys: Evidence of punctate nonobstructing calculus in lower pole of left kidney. Both kidneys otherwise appear unremarkable. No hydroureteronephrosis. Bladder: Non distended. Bowel: Stomach appears grossly unremarkable. No abnormally dilated or thick- walled loops of large or small bowel noted. Appendix appears unremarkable. Ascites: Absent Lymphadenopathy: No evidence of lymphadenopathy. Abdominal Wall and Mesentery: Unremarkable. Vasculature: Unremarkable. Pelvic Organs: Unremarkable Musculoskeletal: No bony lesions or fracture. IMPRESSION: No acute abdominal or pelvic findings. Radiation optimization: All CT scans at this facility use at least one of these dose optimization techniques: automated exposure control mA and/or kV adjustment per patient size (includes targeted exams where dose is matched to clinical indication) or iterative reconstruction. ATED BY: JHON VICTOR MD DICTATED DATE/TIME: 03/13/252312 SIGNED BY: JHON VICTOR MD SIGNED DATE/TIME: 03/13/252312 CC: Time of 1ST Reevaluation: 22:00 Reevaluation 1ST: Unchanged Patient Education/Counseling: Diagnosis, Treatment, Prognosis Family Education/Counseling: No Family Present SEPSIS Sepsis Screen Physician Orders Electrocardigram (03/13/25 21:35) Troponin-I Hs (03/15/25 21:36) Ct Ab Pel Wo Con-No Oral Or Iv (03/13/25 21:36) Vital Signs Date Time Temp Pulse Resp B/P (MAP) Pulse Ox O2 Delivery O2 Flow Rate FiO2 03/14/25 00:00 67 18 135/96 03/13/25 23:58 98.8 67 20 135/96 (109) 96 98.8 03/13/25 21:35 98.5 87 18 130/91 99 98.5 03/13/25 21:30 89 Laboratory Tests Test 03/13/25 21:46 White Blood Count 8.1 10^3/uL (4.4-10.8) Medications Medications Dose Ordered Sig/Jermain Route Start Time Stop Time Status Last Admin Dose Admin Al Hydrox/Mg Hydrox/Simethicone 30 ml ONCE ONCE PO 03/13/25 21:45 03/13/25 21:46 DC 03/13/25 23:11 Famotidine 40 mg ONCE ONCE PO 03/13/25 21:45 03/13/25 21:46 DC 03/13/25 23:12 Hydromorphone HCl 1 mg ONCE ONCE IM 03/14/25 00:00 03/14/25 00:01 DC 03/14/25 00:00 Ondansetron HCl 4 mg ONCE ONCE IV 03/14/25 00:00 03/14/25 00:01 DC 03/14/25 00:00 Ondansetron HCl 4 mg ONCE ONCE PO 03/13/25 21:45 03/13/25 21:46 DC 03/13/25 23:12 Departure 1 Departure Time of Disposition: 00:10 Impression: Primary Impression: Acute abdominal pain Disposition: 01 HOME / SELF CARE / HOMELESS Condition: Stable e-Prescriptions Pantoprazole Sodium Sesquihydr (Protonix) 40 Mg Tab 40 MG PO DAILY for 90 Days, #90 TAB 3 Refills Prov: RODRIGUEZ TALLEY MD 03/13/25 Famotidine (PEPCID TABLET) 20 Mg Tb 1 TAB PO BID PRN, #60 TAB 5 Refills Prov: RODRIGUEZ TALLEY MD 03/13/25 Discharged With: Self Critical Care Note Critical Care Time?: No Stability Stability form required: No Heart Score Heart Score: Heart Score Response (Comments) Value History N/A 0 EKG N/A 0 Age N/A 0 Risk Factors N/A 0 Troponin N/A 0 Total 0 I personally scribed for RODRIGUEZ TALLEY MD ([email or web address]) on 03/13/25 at 21:41. Electronically submitted by Jack Christy ([email or web address]). I personally scribed for RODRIGUEZ TALLEY MD ([email or web address]) on 03/13/25 at 23:35. Electronically submitted by Jorge Overton ([email or web address]). RODRIGUEZ TALLEY MD Mar 13, 2025 21:41
[2025-03-13 22:08] LABS: Hematocrit 44.3 % (41.0-53.0); Hemoglobin 14.8 g/dL (13.5-17.5); Mean Corpuscular Hemoglobin 29.0 pg (28.0-32.0); Mean Corpuscular Volume 87.0 fL (80.0-100.0); Nucleated Red Blood Cells % 0.1 %
[2025-03-13 22:20] LABS: Alanine Aminotransferase 22 U/L (7-40); Anion Gap 10 (5-15); BUN/Creatinine Ratio 7.3 (10.0-20.0); Bilirubin, Total 0.8 mg/dL (0.2-1.0); Carbon Dioxide 27 mmol/L (20-31); Chloride 103 mmol/L (98-107); Glucose 90 mg/dL (74-106); Potassium 4.1 mmol/L (3.5-5.1); Sodium 140 mmol/L (136-145); Total Protein 7.5 g/dL (5.7-8.2)
[2025-03-13 22:25] LABS: Albumin 5.1 g/dL (3.2-4.8); Alkaline Phosphatase 40 U/L (46-116); Blood Urea Nitrogen 7 mg/dL (9-23); Calcium 10.4 mg/dL (8.7-10.4); Lipase 55 U/L (12-53)
[2025-03-13] MEDS: MAALOX PLUS or MAALOX 30 ML PO ONE (23:11)
[2025-03-13] MEDS: ONDANSETRON ODT 4 MG TAB PO ONE (23:12)
[2025-03-13] MEDS: FAMOTIDINE 20 MG TAB PO ONE (23:12)
--- NOTE | 2025-03-13 23:15 | DVH ---
Exam: CT CT AB PEL WO CON-NO ORAL OR IV History: abd pain Comparison Study: CT CT AB PEL WO CON-NO ORAL OR IV on DOS: 01/08/25, US KIDNEY on DOS: 12/08/24, CT CT AB PEL WO CON-NO ORAL OR IV on DOS: 12/08/24 Technique: Multidetector spiral CT of the abdomen was performed from lung bases to pubic symphysis. Imaging was performed without IV contrast. Axial, coronal and sagittal multiplanar reformats were ob tained from the axial data set by the technologist. Radiation Dose : 1. Abdomen/Pelvis: CTDIvol 6.93 mGy, DLP 3.92 mGy*cm. Findings: Evaluation of solid organs is limited due to lack of intravenous contrast use. Lung Bases: No abnormality demonstrated. Liver: Normal in size. No focal lesions noted. Gallbladder and Biliary Tree: Gallbladder is collapsed. No evidence of biliary ductal dilatation. Spleen: No abnormality demonstrated. Pancreas: No abnormality demonstrated. Adrenal Glands: No abnormality demonstrated. Kidneys: Evidence of punctate nonobstructing calculus in lower pole of left kidney. Both kidneys o therwise appear unremarkable. No hydroureteronephrosis. Bladder: Non distended. Bowel: Stomach appears grossly unremarkable. No abnormally dilated or thick-walled loops of large or small bowel noted. Appendix appears unremarkable. Ascites: Absent Lymphadenopathy: No evidence of lymphadenopathy. Abdominal Wall and Mesentery: Unremarkable. Vasculature: Unremarkable. Pelvic Organs: Unremarkable Musculoskeletal: No bony lesions or fracture. IMPRESSION: No acute abdominal or pelvic findings. Radiation optimization: All CT scans at this facility use at least one of these dose optimization kayla hniques: automated exposure control mA and/or kV adjustment per patient size (includes targeted exam s where dose is matched to clinical indication) or iterative reconstruction.
[2025-03-13] MEDS ORDERED: FAMO20TA10 PO (23:38)
[2025-03-13] MEDS ORDERED: PANT40TA2 PO (23:38)
[2025-03-13 23:58] VITALS: TEMP 98.8
[2025-03-14] MEDS: HYDROmorphone HCL 2 MG/ML VL/or syr IM ONE
[2025-03-14] MEDS: ONDANSETRON HCL 4 MG/2 ML VIAL IV ONE
[2025-03-14 00:30] VITALS: BP 130/86
[2025-03-14 00:50] VITALS: PULSE 65; RESP 20; O2SAT 100
--- NOTE | 2025-03-14 04:14 | ECG ---
[facility] Test Date: 2025-03-13 Test Time: 21:30:12 Pat Name: JUAN C CORTEZ Department: Room: Gender: M Technical Support Consultant: AZEB : 1990 Requested By: RODRIGUEZ TALLEY Order Number: [id number] Reading MD: Measurements Intervals [place] Rate: 89 P: 58 [place]: 156 QRS: 47 QRSD: 105 T: 54 QT: 349 QTc: 425 Interpretive Statements Sinus rhythm ST elev, probable normal early repol pattern Please click the below link to view image of tracing.
[2025-03-15] MEDS ORDERED: HYDR1TAB97 PO (15:11)
[2025-03-15] MEDS ORDERED: PANT40TA2 PO (15:11)
[2025-03-15] MEDS ORDERED: ZOFR4T PO (15:11)
== END 2025-03-14 00:55 | disposition home or self-care (01) ==
LOC: ER 21:28 → EDBD 21:28 → ER 03-14 00:55
DX: R10.13 Epigastric pain (principal); F31.9 Bipolar disorder, unspecified; Z79.899 Other long term (current) drug therapy; Z79.891 Long term (current) use of opiate analgesic
CPT/HCPCS: 36415; 74176; 80053; 83690; 84484; 85025; 93005; 96372; 96374; 99285; J1171; J2405; Q0162

== ENCOUNTER 2025-03-15 12:39 | Emergency (ER) | payer MEDICAID ==
[~2025-03-15] VITALS: Ht 172.7 cm; Wt 77.3 kg
[~2025-03-15 12:39] MED LIST changes: +FAMO20TA10 PO; +PANT40TA2 PO
--- NOTE | 2025-03-15 13:21 | ED.PDOC ---
GI ASSESSMENT HPI Comments This is a 35 year old male presenting to the ED with chief complaint of abdominal pain. Patient reports that he has been experiencing epigastric abdominal pain with associated nausea, vomiting, and diarrhea for the past 5 days. Patient relays that he had similar symptoms before and was told he had esophageal ulcers. Patient denies any marijuana use, ETOH use, fever, chills, dizziness, melena, or chest pain. Chief Complaint: Abdominal Pain Time Seen by MD: 13:20 Primary Care Provider: DENIES Reviewed Notes: Nurses Notes, Medications, Allergies Allergies: Coded Allergies: NO KNOWN ALLERGIES (Unverified , 03/22/21) Home Meds Active Scripts Ondansetron Odt 4MG Tab (ZOFRAN PO) 4 Mg Tb, 4 MG PO Q8HP PRN for 5 Days, #15 TAB ODT TAB-DISSOLVE IN MOUTH, THEN SWALLOW Prov:ARGENTINA MCNEILL MD 03/15/25 Pantoprazole Sodium Sesquihydr (Protonix) 40 Mg Tab, 40 MG PO DAILY for 90 Days, #90 TAB 3 Refills Prov:ARGENTINA MCNEILL MD 03/15/25 Hydrocodone-Acetaminophen (Hydrocodone/Acetaminophen 5-325 mg) 1 Tab Tab, 1 TAB PO TID for 5 Days, #15 TAB Prov:ARGENTINA MCNEILL MD 03/15/25 Famotidine (PEPCID TABLET) 20 Mg Tb, 1 TAB PO BID PRN, #60 TAB 5 Refills Prov:RODRIGUEZ TALLEY MD 03/13/25 Nystatin (Mouth-Throat) (Mycostatin (Mouth-Throat)) 500,000 Units/5 Ml Ss, 5 ML MT QID for 10 Days, #200 ML Prov:TRUE WHITE MD 12/11/24 Sucralfate (Carafate) 1 Gm/10 Ml Altagracia, 10 ML PO QID, #1200 ML Prov:TRUE WHITE MD 12/11/24 Pantoprazole Sodium Sesquihydr (Pantoprazole Sodium) 40 Mg Tab, 40 MG PO BIDAC, #90 TAB Prov:TRUE WHITE MD 12/11/24 Reported Medications Quetiapine Fumerate (QUETIAPINE FUMARATE) 400 Mg Tab, 1 TAB PO BID 12/09/24 Mirtazapine (Mirtazapine Oral Disintegrating Tablet) 30 Mg Tab, 1 TAB PO 12/09/24 Buspirone HCl (Buspirone HCl) 10 Mg Tab, 1 TAB PO BID 12/09/24 Tizanidine Hydrochloride (Tizanidine Hcl) 4 Mg Tab, 1 TAB PO BID 12/09/24 Information Source: Patient Mode of Arrival: EMS Timing: Days Duration: Since onset Prehospital treatment: None Quality: Aching Vomitus: Watery Stool: Watery Severity: Moderate Recent: None Recent Hx of: None Pain Location: Epigastric Modifying Factors: Nothing Associated sign and symptoms: Nausea, Vomiting, Diarrhea, Abdominal Pain Past Medical History PAST MEDICAL HISTORY: Depression Past Medical History (Other): Esophagitis, Esophageal ulcer Surgical History (Other): Left hip surgery, collar bone surgery, skin graft Family History Family History: Reviewed,noncontributory to illness, Unknown Social History Smoker: Other (Vapes) Alcohol: Denies ETOH Use Drugs: Denies Drug Use Lives In: Home Constitutional: denies: chills, diaphoresis, fatigue, fever, malaise, sweats, weakness, others EENTM: denies: blurred vision, double vision, ear bleeding, ear discharge, ear drainage, ear pain, ear ringing, eye pain, eye redness, hearing loss, mouth pain, mouth swelling, nasal discharge, nose bleeding, nose congestion, nose pain, photophobia, tearing, throat pain, throat swelling, voice changes, others Respiratory: denies: cough, hemoptysis, orthopnea, SOB at rest, shortness of breath, SOB with excertion, stridor, wheezing, others Cardiovascular: denies: chest pain, dizzy spells, diaphoresis, Dyspnea on exertion, edema, irregular heart beat, left arm pain, lightheadedness, palpitations, PND, syncope, others Gastrointestinal: reports: abdominal pain, diarrhea, nausea, vomiting; denies: abdomen distended, blood streaked bowels, constipated, dysphagia, difficulty swallowing, hematemesis, melena, poor appetite, poor fluid intake, rectal bleeding, rectal pain, others Genitourinary: denies: burning, dysuria, flank pain, frequency, hematuria, incontinence, penile discharge, penile sore, pain, testicle pain, testicle swelling, urgency, others Neurological: denies: dizziness, fainting, headache, left sided numbness, left sided weakness, numbness, paresthesia, pre-existing deficit, right sided numbness, right sided weakness, seizure, speech problems, tingling, tremors, weakness, others Musculoskeletal: denies: back pain, gout, joint pain, joint swelling, muscle pain, muscle stiffness, neck pain, others Integumetry: denies: bruises, change in color, change in hair/nails, dryness, laceration, lesions, lumps, rash, wounds, others Allergic/Immunocompromised: denies: Difficulty Healing, Frequent Infections, Hives, Itching, others Hematologic/Lymphatic: denies: anemia, blood clots, easy bleeding, easy bruising, swollen glands, others Endocrine: denies: excessive hunger, excessive sweating, excessive thirst, excessive urination, flushing, intolerance to cold, intolerance to heat, unexplained weight gain, unexplained weight loss, others Psychiatric: denies: anxiety, bipolar disorder, depression, hopeless, panic disorder, schizophrenia, sleepless, suicidal, others All Other Systems: Reviewed and Negative Physical Exam General Appearance: Mild Distress HEENT: Normal ENT Inspection, Pharynx Normal, TMs Normal Neck: Full Range of Motion, Non-Tender, Normal, Normal Inspection Respiratory: Chest Non-Tender, Lungs Clear, No Accessory Muscle Use, No Respiratory Distress, Normal Breath Sounds Cardiovascular: No Edema, No JVD, No Murmur, No Gallop, Normal Peripheral Pulses, Regular Rate/Rhythm Breast Exam: Deferred Gastrointestinal: Epigastric, No Organomegaly, No Pulsatile Mass, Normal Bowel Sounds, Soft, Tenderness Genitalia: Deferred Pelvic: Deferred Rectal: Deferred Extremities: No calf tenderness, Normal capillary refill, Normal inspection, Normal range of motion, Non-tender, No pedal edema Musculoskeletal : Apperance: Normal Neurologic: Alert, marketing budget analyst II-XII nml as Tested, No Motor Deficits, Normal Affect, Normal Mood, No Sensory Deficits Cerebellar Function: Normal Reflexes: Normal Skin: Dry, Normal Color, Warm Lymphatic: No Adenopathy Was a procedure done? Was a procedure done?: No GI differential Dx Differential Diagnosis: Gastritis/PUD, Gastroenteritis, Inflammatory BD, Pancreatitis, UTI, Electrolyte Imbalance, Food Poisoning X-Ray, Labs, Meds, VS Vital Signs Date Time Temp Pulse Resp B/P (MAP) Pulse Ox O2 Delivery O2 Flow Rate FiO2 9/2/25 14:32 98.4 104 22 135/98 (110) 98 98.4 03/15/25 12:51 98.0 116 18 129/87 100 98.0 Lab Test 03/15/25 13:46 03/15/25 13:30 Range/Units Urine Color Colorless Yellow Urine Clarity Clear Clear Urine pH 8.0 5.0-9.0 Urine Specific Miles 1.010 1.001-1.035 Urine Protein Negative Negative Urine Ketones Negative Negative Urine Blood Negative Negative /uL Urine Nitrite Negative Negative Urine Bilirubin Negative Negative Urine Urobilinogen Normal Negative mg/dL Urine Leukocyte Esterase Negative Negative /uL Urine RBC <1 0 - 3 /hpf Urine Microscopic WBC < 1 0-3 /HPF Urine Squamous Epithelial Cells None seen <5 /hpf Urine Bacteria None seen None Seen /hpf Urine Glucose Normal Normal mg/dL Urine Opiates Screen Neg NEGATIVE Urine Fentanyl Screen Neg NEGATIVE Urine Barbiturates Screen Neg NEGATIVE Urine Phencyclidine Screen Neg NEGATIVE Urine Amphetamines Screen Neg NEGATIVE Urine Benzodiazepines Screen Neg NEGATIVE Urine Cocaine Screen Neg NEGATIVE Urine Cannabinoids Screen Neg NEGATIVE White Blood Count 9.3 4.4-10.8 10^3/uL Red Blood Count 4.98 4.5-5.90 10^6/uL Hemoglobin 14.3 13.5-17.5 g/dL Hematocrit 42.7 41.0-53.0 % Mean Corpuscular Volume 85.9 80.0-100.0 fL Mean Corpuscular Hemoglobin 28.7 28.0-32.0 pg Mean Corpuscular Hemoglobin Concent 33.4 32.0-36.0 g/dL Red Cell Distribution Width 15.4 H 11.8-14.3 % Platelet Count 367 140-450 10^3/uL Mean Platelet Volume 7.1 6.9-10.8 fL Neutrophils (%) (Auto) 79.6 37.0-80.0 % Lymphocytes (%) (Auto) 14.8 10.0-50.0 % Monocytes (%) (Auto) 4.8 0.0-12.0 % Eosinophils (%) (Auto) 0.3 0.0-7.0 % Basophils (%) (Auto) 0.5 0.0-2.0 % Neutrophils # (Auto) 7.4 1.6-8.6 10 ^3/uL Lymphocytes # (Auto) 1.4 0.4-5.4 10 ^3/uL Monocytes # (Auto) 0.4 0-1.3 10 ^3/uL Eosinophils # (Auto) 0 0-0.8 10 ^3/uL Basophils # (Auto) 0 0-0.2 10 ^3/uL Nucleated Red Blood Cells 0.0 % Sodium Level 138 136-145 mmol/L Potassium Level 3.9 3.5-5.1 mmol/L Chloride Level 102 98-107 mmol/L Carbon Dioxide Level 27 20-31 mmol/L Anion Gap 9 5-15 Blood Urea Nitrogen 9 9-23 mg/dL Creatinine 0.95 0.700-1.30 mg/dL Glomerular Filtration Rate Calc 106 >90 mL/min BUN/Creatinine Ratio 9.5 L 10.0-20.0 Serum Glucose 98 74-106 mg/dL Calcium Level 10.1 8.7-10.4 mg/dL Total Bilirubin 0.6 0.2-1.0 mg/dL Aspartate Amino Transferase (AST) 18 13-40 U/L Alanine Aminotransferase (ALT) 18 7-40 U/L Alkaline Phosphatase 39 L 46-116 U/L Total Protein 7.6 5.7-8.2 g/dL Albumin 5.1 H 3.2-4.8 g/dL Lipase 53 12-53 U/L Current Medications Medications (Trade) Dose Ordered Sig/Jermain Route Start Time Stop Time Status Last Admin Sodium Chloride 1,000 ml @ 1,000 mls/hr Q1H ONCE IVB 03/15/25 13:30 03/15/25 14:38 DC 03/15/25 14:11 Pantoprazole Sodium (Protonix) 40 mg ONCE ONCE IV 03/15/25 13:30 03/15/25 13:31 DC 03/15/25 14:11 Prochlorperazine Edisylate (Compazine Inj) 10 mg ONCE ONCE IV 03/15/25 13:30 03/15/25 13:31 DC 03/15/25 14:11 The patient has a 1 L bolus of normal saline The patient was given Protonix 40 mg IV push The patient was given Compazine 10 mg IV push for the nausea and vomiting The patient's CBC and chemistry panel are within normal limits. The urine drug screen is negative The urine test is negative The patient was also given morphine for the pain The patient is being discharged on Protonix, Zofran and [place] Time of 1ST Reevaluation: 15:12 Reevaluation 1ST: Improved Patient Education/Counseling: Diagnosis, Treatment, Prognosis, Need For Follow Up Family Education/Counseling: No Family Present SEPSIS Sepsis Screen Date sepsis recognized/suspect: Mar 15, 2025 Time Sepsis recognized/suspect: 1251 Recent Procedure: No On Antibiotic Therapy: No Respiratory Rate >20: No Heart Rate >90: Yes Temp<36 C (96.8 F) or >38.3 C: No SBP <90 or MAP <65 mmHG: No New Acute Mental Status Change: No Is the patient on CPAP, BIPAP,: No Physician Orders Heplock Iv (03/15/25 13:17) Insurance Sales Manager (03/15/25 13:17) Blood Pressure (03/15/25 13:17) Pulse Oximetry (03/15/25 13:17) Morphine Sulfate Injection (03/15/25 15:15) Vital Signs Date Time Temp Pulse Resp B/P (MAP) Pulse Ox O2 Delivery O2 Flow Rate FiO2 03/15/25 14:32 98.4 104 22 135/98 (110) 98 98.4 03/15/25 12:51 98.0 116 18 129/87 100 98.0 Laboratory Tests Test 03/15/25 13:30 White Blood Count 9.3 10^3/uL (4.4-10.8) Medications Medications Dose Ordered Sig/Jermain Route Start Time Stop Time Status Last Admin Dose Admin Pantoprazole Sodium 40 mg ONCE ONCE IV 03/15/25 13:30 03/15/25 13:31 DC 03/15/25 14:11 Prochlorperazine Edisylate 10 mg ONCE ONCE IV 03/15/25 13:30 03/15/25 13:31 DC 03/15/25 14:11 Sodium Chloride 1,000 ml @ 1,000 mls/hr Q1H ONCE IVB 03/15/25 13:30 03/15/25 14:38 DC 03/15/25 14:11 Departure 1 Departure Time of Disposition: 15:12 Impression: Primary Impression: GERD (gastroesophageal reflux disease) Qualified Codes: K21.00 - Gastro-esophageal reflux disease with esophagitis, without bleeding Additional Impression: Vomiting Qualified Codes: R11.14 - Bilious vomiting Disposition: 01 HOME / SELF CARE / HOMELESS Condition: Fair e-Prescriptions Ondansetron Odt 4MG Tab (ZOFRAN PO) 4 Mg Tb 4 MG PO Q8HP PRN for 5 Days, #15 TAB ODT TAB-DISSOLVE IN MOUTH, THEN SWALLOW Prov: ARGENTINA MCNEILL MD 03/15/25 Pantoprazole Sodium Sesquihydr (Protonix) 40 Mg Tab 40 MG PO DAILY for 90 Days, #90 TAB 3 Refills Prov: ARGENTINA MCNEILL MD 03/15/25 Hydrocodone-Acetaminophen (Hydrocodone/Acetaminophen 5-325 mg) 1 Tab Tab 1 TAB PO TID for 5 Days, #15 TAB Prov: ARGENTINA MCNEILL MD 03/15/25 Discharged With: Self Critical Care Note Critical Care Time?: No Stability Stability form required: No Heart Score Heart Score: Heart Score Response (Comments) Value History N/A 0 EKG N/A 0 Age N/A 0 Risk Factors N/A 0 Troponin N/A 0 Total 0 I personally scribed for ARGENTINA MCNEILL MD ([email or web address]) on 03/15/25 at 13:21. Electronically submitted by Dorian Vega ([email or web address]). ARGENTINA MCNEILL MD Mar 15, 2025 13:21
[2025-03-15 13:57] LABS: Hematocrit 42.7 % (41.0-53.0); Hemoglobin 14.3 g/dL (13.5-17.5); Mean Corpuscular Hemoglobin 28.7 pg (28.0-32.0); Mean Corpuscular Volume 85.9 fL (80.0-100.0); Nucleated Red Blood Cells % 0.0 %
[2025-03-15] MEDS: PANTOPRAZOLE 40 MG/10 ML VIAL INJ IV ONE (14:11)
[2025-03-15] MEDS: PROCHLORPERAZINE EDISYLATE 5 MG/ML 2ML VIAL IV ONE (14:11)
[2025-03-15] MEDS: SODIUM CHLORIDE 0.9% 1,000 ML IVB ONE (14:11)
[2025-03-15 14:14] LABS: Alanine Aminotransferase 18 U/L (7-40); Albumin 5.1 g/dL (3.2-4.8); Alkaline Phosphatase 39 U/L (46-116); Anion Gap 9 (5-15); BUN/Creatinine Ratio 9.5 (10.0-20.0); Bilirubin, Total 0.6 mg/dL (0.2-1.0); Blood Urea Nitrogen 9 mg/dL (9-23); Calcium 10.1 mg/dL (8.7-10.4); Carbon Dioxide 27 mmol/L (20-31); Chloride 102 mmol/L (98-107); Glucose 98 mg/dL (74-106); Lipase 53 U/L (12-53); Potassium 3.9 mmol/L (3.5-5.1); Sodium 138 mmol/L (136-145); Total Protein 7.6 g/dL (5.7-8.2)
[2025-03-15 14:29] LABS: Urine Protein, UAD Negative (Negative)
[2025-03-15 14:31] LABS: Amphetamine Screen, Urine Neg (NEGATIVE); Opiate Scree,Urine Neg (NEGATIVE)
[2025-03-15 14:32] LABS: Barbiturate Scree,Urine Neg (NEGATIVE); Benzodiazephine Screen, Urine Neg (NEGATIVE); Cannabinoid Screen, Urine Neg (NEGATIVE); Cocaine Screen, Urine Neg (NEGATIVE); Phencyclidine Screen, Urine Neg (NEGATIVE)
[2025-03-15] MEDS ORDERED: ZOFR4T PO (15:11)
[2025-03-15] MEDS ORDERED: HYDR1TAB97 PO (15:11)
[2025-03-15] MEDS ORDERED: PANT40TA2 PO (15:11)
[2025-03-15] MEDS: MORPHINE SULFATE 4 MG/ML SYR/VIAL IV ONE (16:11)
[2025-03-15 16:41] VITALS: BP 129/87; PULSE 103; RESP 18; TEMP 98.1; O2SAT 100
== END 2025-03-15 16:50 | disposition home or self-care (01) ==
LOC: ER 12:39 → EDBD 12:39 → ER 16:50
DX: K21.00 Gastro-esophageal reflux disease with esophagitis, without bleeding (principal); R11.2 Nausea with vomiting, unspecified; F32.A Depression, unspecified; F17.290 Nicotine dependence, other tobacco product, uncomplicated; Z79.899 Other long term (current) drug therapy; Z87.19 Personal history of other diseases of the digestive system; Z79.891 Long term (current) use of opiate analgesic
CPT/HCPCS: 36415; 80053; 80307; 81001; 83690; 85025; 96361; 96374; 96375; 99284; J0780; J2270; J2470; J7030